=== PATIENT | female | born 1985 | race American Indian/Alaskan Native ===

== ENCOUNTER 2019-03-19 21:52 | Emergency (ER) | payer BC, MEDICAID ==
[2019-03-20 00:03] LABS: Basophils # (Auto) 0.1 K/mm3 (0.0-0.1); Basophils % (Auto) 0.6 % (0.0-1.8); Eosinophils # (Auto) 0.2 K/mm3 (0.0-0.4); Eosinophils % (Auto) 2.3 % (0.0-4.3); Hematocrit 35.8 % (30.3-42.9); Hemoglobin 11.8 gm/dl (10.1-14.3); Lymphocytes # (Auto) 2.1 K/mm3 (1.2-5.4); Lymphocytes % (Auto) 19.4 % (13.4-35.0); Mean Corpuscular HGB Conc 33 % (30-34); Mean Corpuscular Volume 101 fl (79-97); Monocytes # (Auto) 0.7 K/mm3 (0.0-0.8); Monocytes % (Auto) 6.7 % (0.0-7.3); Platelet Count 448 K/mm3 (140-440); Red Blood Count 3.54 M/mm3 (3.65-5.03); Red Cell Distribution Width 12.9 % (13.2-15.2)
[2019-03-20 00:11] LABS: INR 0.97 (0.87-1.13)
[2019-03-20 00:12] LABS: Partial Thromboplastin Time 31.5 Sec. (24.2-36.6)
[2019-03-20 00:15] LABS: BUN/Creatinine Ratio 7; Blood Urea Nitrogen 5 mg/dL (7-17); Calcium 9.4 mg/dL (8.4-10.2); Hemolysis Index 8
[2019-03-20] MEDS ORDERED: ATROVENT IH ONE (00:17)
[2019-03-20] MEDS ORDERED: PROVENTIL IH ONE (00:17)
[2019-03-20] MEDS ORDERED: NACL 0.9% 500 ML 500 ML IV ONE (00:17)
--- NOTE | 2019-03-20 00:18 | Emergency Department Report ---
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 Patient presents to the emergency room today with a complaint of "cold-like symptoms." Approximately 1 week ago she developed a runny nose, coughing, green mucus production, shortness of breath and chest tightness. She presented to a primary care doctor, and was prescribed albuterol, acet aminophen, and appropriate antiallergy therapy. She has remained compliant with her aspirin therapy, and Lovenox therapy. She reports that over the past 3 days, she's developed central chest pain, p ressure, worsened with coughing, radiates to the back, shortness of breath, which she describes as difficulty taking a deep breath, worsening cough, right- sided headache, right-sided ear pain. She was prescribed albuterol, but wasn't able to get up because the pharmacy was closed. She denies posterior leg pain, leg swelling, oral contraceptive use, recent surgeries. She denies abdominal pain. Her symptoms are worsening over the past few days, worse with physical exertion, decreased with rest, and radiates as previously described. There is no family history of heart disease that she is aware of. She does not smoke cigarettes. Her significant other does consume via a vaping device She does report some worthless exposure to smoke. -: Gradual, days(s) Location: head, face, chest Radiation: back Severity scale (0 -10): 8 Consistency: constant Improves with: other Worsens with: other Associated Symptoms: chest pain, cough, headaches, shortness of breath. denies: confusion, diaphoresis, fever/chills, loss of appetite, malaise, nausea/vomiting, rash, seizure, syncope, weakness - Related Data Previous Rx's Medication Instructions Recorded Last Taken Type Acetaminophen [Acetaminophen 8 650 mg PO Q6HR PRN #30 tablet.er 03/20/19 Unknown Rx Hour] Albuterol Sulfate [Albuterol 0.63% 0.63 mg IH Q4HR PRN #2 ml 03/20/19 Unknown Rx NEBS] Albuterol Sulfate [Proair 90 mcg IH Q4HR PRN #2 aer.pow.ba 03/20/19 Unknown Rx Respiclick] Cefdinir 600 mg PO QDAY #14 capsule 03/20/19 Unknown Rx Allergies Allergy/AdvReac Type Severity Reaction Status Date / Time Penicillins AdvReac N/V Verified 11/24/14 09:18 ED Review of Systems ROS: Stated complaint: CHEST PAIN/SOB/IBRAHIM/EARACHE Other details as noted in HPI Constitutional: denies: fever Eyes: denies: eye discharge ENT: congestion Respiratory: cough, shortness of breath Cardiovascular: chest pain Gastrointestinal: denies: abdominal pain, nausea, vomiting Genitourinary: denies: dysuria Musculoskeletal: arthralgia Skin: denies: lesions Neurological: headache Psychiatric: anxiety ED Past Medical Hx - Past Medical History Previous Medical History?: Yes Hx Asthma: Yes Additional medical history: TIA, States she is 25 weeks high risk due to her DM, blood clots after knee surgery, high platelet count and she is self admistering Lovenox daily. - Surgical History Past Surgical History?: Yes Additional Surgical History: HERNIA REPAIR. THYROIDECTOMY. Left Knee surgery - Social History Smoking Status: Never Smoker - Medications Home Medications: Home Medications Medication Instructions Recorded Confirmed Last Taken Type Acetaminophen [Acetaminophen 8 650 mg PO Q6HR PRN #30 tablet.er 03/20/19 Unknown Rx Hour] Albuterol Sulfate [Albuterol 0.63% 0.63 mg IH Q4HR PRN #2 ml 03/20/19 Unknown Rx NEBS] Albuterol Sulfate [Proair 90 mcg IH Q4HR PRN #2 aer.pow.ba 03/20/19 Unknown Rx Respiclick] Cefdinir 600 mg PO QDAY #14 capsule 03/20/19 Unknown Rx ED Physical Exam - General Limitations: No Limitations General appearance: alert, in no apparent distress - Head Head exam: Present: atraumatic, normocephalic - Eye Eye exam: Present: normal appearance, EOMI. Absent: nystagmus - ENT ENT exam: Present: normal exam, normal orophraynx, mucous membranes moist, normal external ear exam. Absent: TM's normal bilaterally (right-sided tympanic membrane is erythematous and opacified. There is no mastoid tenderness. There is no helix tenderness.) - Neck Neck exam: Present: normal inspection, full ROM. Absent: tenderness, meningismus - Respiratory Respiratory exam: Present: decreased breath sounds. Absent: respiratory distress - Cardiovascular Cardiovascular Exam: Present: normal rhythm, tachycardia, normal heart sounds. Absent: systolic murmur, diastolic murmur, rubs, gallop - GI/Abdominal GI/Abdominal exam: Present: soft. Absent: distended, tenderness, guarding, rebound, rigid, pulsatile mass - Extremities Exam Extremities exam: Present: normal inspection, full ROM, other (2+ pulses noted i n the bilateral upper, lower extremities. Compartments soft. No long bony tenderness. The pelvis is stable.). Absent: pedal edema, joint swelling, calf tenderness (there is no palpable cord. There is negative Homans sign.) - Back Exam Back exam: Present: normal inspection, full ROM. Absent: tenderness, CVA tenderness (R), paraspinal tenderness, vertebral tenderness - Neurological Exam Neurological exam: Present: alert, oriented X3, other (2+ pulses noted in the bilateral upper, lower extremities. Compartments soft. No long bony tenderness. The pelvis is stable.). Absent: motor sensory deficit - Psychiatric Psychiatric exam: Present: anxious - Skin Skin exam: Present: warm, dry, intact, normal color. Absent: rash ED Course Vital Signs 03/19/19 03/19/19 03/19/19 22:11 22:38 23:39 Temperature 98.4 F 98.0 F Pulse Rate 103 H 122 H Pulse Rate [ Bilateral] Respiratory 18 18 20 Rate Respiratory Rate [Bilateral ] Blood Pressure 135/82 135/82 Blood Pressure [Left] O2 Sat by Pulse 100 100 Oximetry 03/19/19 03/20/19 03/20/19 23:42 01:00 01:10 Temperature 98.0 F Pulse Rate 105 H Pulse Rate [ 96 H 92 H Bilateral] Respiratory 20 Rate Respiratory 21 20 Rate [Bilateral ] Blood Pressure Blood Pressure 129/86 [Left] O2 Sat by Pulse 99 Oximetry - Reevaluation(s) Reevaluation #1: 03/20/19 01:09 Differential diagnosis, including but not limited to: Bronchitis, pneumonia, costochondritis, otitis media, migraine headache, tension headache, cluster headache, acute coronary syndrome, pulmonary embolus Assessment and plan: 33-year-old female who is , pulse likely with natural history of bronchitis. The patient is afebrile with reassuring vital signs. Tachycardia reviewed and appreciated, likely secondary to underlying physiology of . Troponin negative 1, chest pain is present for a few days, patient is not hypoxic, the EKG is not morphologically consistent with ST elevation myocardial infarction. The patient reports compliance with Lovenox therapy, and her d-dimer is negative, I find her to be low posttussive probability, and low risk by clinical gestalt. Patient is amenable to having an x-ray of the chest performed, after risks, benefits were described. Appears to have a right-sided otitis media, and her "allergy" to penicillins, includes diarrhea and rash. She makes no complaints or engorgement of anaphylactic or anaphylactoid symptoms. Explained to patient that these are mos t likely adverse reactions, side effects, but not necessarily allergic in nature. We will obtain noncontrast CT scan of the brain given history of Lovenox use, although clinically doubt intracranial lesion. Patient will be started empirically on albuterol, acetaminophen, and cefdinir. Repeat troponin, repeat EKG pending. heart tones were performed. they are acceptable and within normal limits. It is my pain that the patient most likely has an upper respiratory tract infection, bronchitis with probable superimposed otitis media. The patient is at low risk for major adverse cardiac event, as per the heart score, and she can follow up with an outpatient employment agency manager further evaluation of her chest pain, although I do not have a very high suspicion for obstructive coronary artery disease. Reevaluation #2: 03/20/19 01:44 X-ray chest appears to be negative for acute disease. Poor inspiratory effort is noted. Repeat EKG appears to be unchanged. Shasha be transferred to the overnight physician, Dr. Josefina Pineda to follow-up on repeat troponin, and formal CT scan of the brain interpretation. If no acute pathology identified, and repeat troponin unremarkable, we will discharge the patient with presumed diagnosis of otitis media, bronchitis, and r efer her to labor and delivery, given that she is approximately 25 weeks by history. ED Medical Decision Making - Lab Data Result diagrams: 03/19/19 23:25 03/19/19 23:25 Vital Signs 03/19/19 03/19/19 03/19/19 22:11 22:38 23:39 Temperature 98.4 F 98.0 F Pulse Rate 103 H 122 H Pulse Rate [ Bilateral] Respiratory 18 18 20 Rate Respiratory Rate [Bilateral ] Blood Pressure 135/82 135/82 Blood Pressure [Left] O2 Sat by Pulse 100 100 Oximetry 03/19/19 03/20/19 23:42 01:00 Temperature 98.0 F Pulse Rate 105 H Pulse Rate [ 96 H Bilateral] Respiratory 20 Rate Respiratory 21 Rate [Bilateral ] Blood Pressure Blood Pressure 129/86 [Left] O2 Sat by Pulse 99 Oximetry Lab Results 03/19/19 03/19/19 03/19/19 Range/Units 23:25 23:25 23:25 WBC 10.9 (4.5-11.0) K/mm3 RBC 3.54 L (3.65-5.03) M/mm3 Hgb 11.8 (10.1-14.3) gm/dl Hct 35.8 (30.3-42.9) % MCV 101 H (79-97) fl MCH 33 H (28-32) pg MCHC 33 (30-34) % RDW 12.9 L (13.2-15.2) % Plt Count 448 H (140-440) K/mm3 Lymph % (Auto) 19.4 (13.4-35.0) % [place] % (Auto) 6.7 (0.0-7.3) % Eos % (Auto) 2.3 (0.0-4.3) % Baso % (Auto) 0.6 (0.0-1.8) % Lymph # 2.1 (1.2-5.4) K/mm3 [place] # 0.7 (0.0-0.8) K/mm3 Eos # 0.2 (0.0-0.4) K/mm3 Baso # 0.1 (0.0-0.1) K/mm3 Seg Neutrophils % 71.0 H (40.0-70.0) % Seg Neutrophils # 7.8 H (1.8-7.7) K/mm3 PT 13.5 (12.2-14.9) Sec. INR 0.97 (0.87-1.13) APTT 31.5 (24.2-36.6) Sec. D-Dimer (0-234) ng/mlDDU Sodium 135 L (137-145) mmol/L Potassium 3.7 (3.6-5.0) mmol/L Chloride 102.7 (98-107) mmol/L Carbon Dioxide 18 L (22-30) mmol/L Anion Gap 18 mmol/L BUN 5 L (7-17) mg/dL Creatinine 0.7 (0.7-1.2) mg/dL Estimated GFR > 60 ml/min BUN/Creatinine Ratio 7 % Glucose 102 H (65-100) mg/dL Calcium 9.4 (8.4-10.2) mg/dL Troponin T < 0.010 (0.00-0.029) ng/mL HCG, Quant (0-4) mIU/mL 03/19/19 03/20/19 Range/Units 23:25 Unknown WBC (4.5-11.0) K/mm3 RBC (3.65-5.03) M/mm3 Hgb (10.1-14.3) gm/dl Hct (30.3-42.9) % MCV (79-97) fl MCH (28-32) pg MCHC (30-34) % RDW (13.2-15.2) % Plt Count (140-440) K/mm3 Lymph % (Auto) (13.4-35.0) % [place] % (Auto) (0.0-7.3) % Eos % (Auto) (0.0-4.3) % Baso % (Auto) (0.0-1.8) % Lymph # (1.2-5.4) K/mm3 [place] # (0.0-0.8) K/mm3 Eos # (0.0-0.4) K/mm3 Baso # (0.0-0.1) K/mm3 Seg Neutrophils % (40.0-70.0) % Seg Neutrophils # (1.8-7.7) K/mm3 PT (12.2-14.9) Sec. INR (0.87-1.13) APTT (24.2-36.6) Sec. D-Dimer 228 (0-234) ng/mlDDU Sodium (137-145) mmol/L Potassium (3.6-5.0) mmol/L Chloride (98-107) mmol/L Carbon Dioxide (22-30) mmol/L Anion Gap mmol/L BUN (7-17) mg/dL Creatinine (0.7-1.2) mg/dL Estimated GFR ml/min BUN/Creatinine Ratio % Glucose (65-100) mg/dL Calcium (8.4-10.2) mg/dL Troponin T (0.00-0.029) ng/mL HCG, Quant 5597 H (0-4) mIU/mL Decreased serum CO2 likely secondary to underlying increasing minute ventilation, likely secondary to underlying expected physiology of . - EKG Data -: EKG Interpreted by [place] EKG shows normal: sinus rhythm Rate: tachycardia - EKG Data 03/20/19 01:15 Sinus tachycardia, 110 beats minute, normal axis, QTC prolonged, abnormal EKG, this is not consistent with ST elevation myocardial infarction. There is no prior for comparison. - Radiology Data Radiology results: pending Critical care attestation.: If time is entered above; I have spent that time in minutes in the direct care of this critically ill patient, excluding procedure time. ED Disposition Clinical Impression: Bronchitis, Otitis media Disposition: DC-01 TO HOME OR SELFCARE Is pt being admited?: No Does the pt Need Aspirin: No Condition: Stable
[2019-03-20] MEDS ORDERED: TYLENOL PO STA (00:42)
--- NOTE | 2019-03-20 02:11 | Cat Scan Report ---
PROCEDURE: CT HEAD/BRAIN WO CON TECHNIQUE: Computerized tomography of the head was performed without contrast material. CT DOSE LENGTH PRODUCT: 805.4 mGycm HISTORY: carey on lovenox, suspect right sided otitis media COMPARISONS: None . FINDINGS: Skull and scalp: Normal . Paranasal sinuses: Normal . Ventricles and subarachnoid spaces: Normal . Cerebrum: No evidence of hemorrhage, acute infarction or mass . Cerebellum and brainstem: No evidence of hemorrhage, acute infarction or mass . Vasculature: Normal . Other: None . IMPRESSION: No evidence of hemorrhage, acute infarction or mass . This document is electronically signed by Kala Jiang MD., March 20 2019 02:09:28 AM ET
--- NOTE | 2019-03-20 02:29 | XRay Report ---
PROCEDURE: XR CHEST ROUTINE 2V TECHNIQUE: PA and lateral chest radiographs were obtained. HISTORY: cp dyspbnea COMPARISONS: None. FINDINGS: Heart: Normal. Mediastinum/Vessels: Normal. Lungs/Pleural space: Normal. Bony thorax: No acute osseous abnormality. IMPRESSION: Normal examination. This document is electronically signed by Bacilio Walker MD., March 20 2019 02:27:34 AM ET
[2019-03-20] MEDS ORDERED: LACTATED RINGERS 1,000 ML ONE (04:26)
[2019-03-20 05:11] VITALS: BP 127/63
[2019-03-20] MEDS ORDERED: SUBLIMAZE ONE (05:13)
[2019-03-20] MEDS ORDERED: LACTATED RINGERS 500 ML IV ONE (05:42)
== END 2019-03-20 06:25 | disposition home or self-care (01) ==
LOC: ED 21:52 → TRG 21:52
DX: O99.512 Diseases of the respiratory system complicating pregnancy, second trimester (principal); J45.901 Unspecified asthma with (acute) exacerbation; O13.2 Gestational [pregnancy-induced] hypertension without significant proteinuria, second trimester; O24.419 Gestational diabetes mellitus in pregnancy, unspecified control; O22.32 Deep phlebothrombosis in pregnancy, second trimester; I82.402 Acute embolism and thrombosis of unspecified deep veins of left lower extremity; O26.892 Other specified pregnancy related conditions, second trimester; R51 Headache; R06.02 Shortness of breath; J06.9 Acute upper respiratory infection, unspecified; E66.9 Obesity, unspecified; H66.90 Otitis media, unspecified, unspecified ear; Z79.01 Long term (current) use of anticoagulants; Z68.36 Body mass index [BMI] 36.0-36.9, adult; Z3A.21 21 weeks gestation of pregnancy; Z86.73 Personal history of transient ischemic attack (TIA), and cerebral infarction without residual deficits
CPT/HCPCS: 36415; 70450; 71046; 80048; 84484; 84702; 85025; 85379; 85610; 85730; 93005; 93010; 94640; J7040; 99285; J3010; J7120

== ENCOUNTER 2019-04-28 16:24 | Outpatient (CLI) | payer MEDICAID ==
[2019-04-28] MEDS ORDERED: LACTATED RINGERS 500 ML IV ONE (16:43)
[2019-04-28 17:40] LABS: Hematocrit 35.1 % (30.3-42.9); Hemoglobin 12.3 gm/dl (10.1-14.3); Mean Corpuscular HGB Conc 35 % (30-34); Mean Corpuscular Volume 98 fl (79-97); Platelet Count 375 K/mm3 (140-440); Red Blood Count 3.58 M/mm3 (3.65-5.03); Red Cell Distribution Width 12.8 % (13.2-15.2)
[2019-04-28 17:47] LABS: Bacteria,Urine 2+ /HPF (Negative); Bilirubin,Urine NEG (Negative); Blood,Urine SM (Negative); Color,Urine Amber (Yellow); Hyaline Casts,Urine 1 /LPF; Mucus,Urine 2+ /HPF; Urobilinogen,Urine < 2.0 mg/dL (<2.0)
[2019-04-28 18:13] LABS: Alanine Aminotransferase 13 units/L (7-56); Uric Acid 5.4 mg/dL (3.5-7.6)
[2019-04-28] MEDS ORDERED: TYLENOL PO ONE (19:28)
[2019-04-28] MEDS ORDERED: LACTATED RINGERS 1,000 ML ONE (19:39)
[2019-04-28 21:42] LABS: BUN/Creatinine Ratio 8; Blood Urea Nitrogen 5 mg/dL (7-17); Calcium 9.3 mg/dL (8.4-10.2); Hemolysis Index 13
[2019-04-28 22:16] VITALS: BP 128/76
== END 2019-04-28 22:33 | disposition home or self-care (01) ==
LOC: TRG 16:24
PROVIDERS: ATTEND Obstetrics & Gynecology
DX: O21.2 Late vomiting of pregnancy (principal); O26.893 Other specified pregnancy related conditions, third trimester; R51 Headache; O47.03 False labor before 37 completed weeks of gestation, third trimester; O16.3 Unspecified maternal hypertension, third trimester; O24.313 Unspecified pre-existing diabetes mellitus in pregnancy, third trimester; E11.9 Type 2 diabetes mellitus without complications; O99.513 Diseases of the respiratory system complicating pregnancy, third trimester; J45.909 Unspecified asthma, uncomplicated; O22.33 Deep phlebothrombosis in pregnancy, third trimester; I82.402 Acute embolism and thrombosis of unspecified deep veins of left lower extremity; Z3A.31 31 weeks gestation of pregnancy; Z79.01 Long term (current) use of anticoagulants
CPT/HCPCS: 36415; 59025; 80048; 81001; 82565; 82962; 83615; 84450; 84460; 84550; 85027; 96360; J7120

== ENCOUNTER 2019-05-24 14:05 | Inpatient (IN) | payer MEDICAID ==
[2019-05-24] MEDS ORDERED: TYLENOL PO PRN (14:50)
[2019-05-24] MEDS ORDERED: COLACE PO PRN (14:50)
[2019-05-24] MEDS ORDERED: MAGNESIUM SULFATE 4GM/100ML 4 GM/100 ML BAG IV ONE (14:53)
[2019-05-24] MEDS: LACTATED RINGERS 1,000 ML IV SCH (15:54)
[2019-05-24] MEDS: CELESTONE SOLUSPAN IM SCH (16:08)
[2019-05-24 16:20] LABS: Basophils # (Auto) 0.1 K/mm3 (0.0-0.1); Basophils % (Auto) 0.8 % (0.0-1.8); Eosinophils # (Auto) 0.2 K/mm3 (0.0-0.4); Eosinophils % (Auto) 2.6 % (0.0-4.3); Hematocrit 33.4 % (30.3-42.9); Hemoglobin 11.7 gm/dl (10.1-14.3); Lymphocytes # (Auto) 2.1 K/mm3 (1.2-5.4); Lymphocytes % (Auto) 24.9 % (13.4-35.0); Mean Corpuscular HGB Conc 35 % (30-34); Mean Corpuscular Volume 98 fl (79-97); Monocytes # (Auto) 0.7 K/mm3 (0.0-0.8); Monocytes % (Auto) 8.1 % (0.0-7.3); Platelet Count 357 K/mm3 (140-440); Red Blood Count 3.42 M/mm3 (3.65-5.03); Red Cell Distribution Width 12.9 % (13.2-15.2)
[2019-05-24 16:29] LABS: Alanine Aminotransferase 14 units/L (7-56); Uric Acid 4.7 mg/dL (3.5-7.6)
[2019-05-24] MEDS: MAGNESIUM SULFATE 40GM/1000ML 40 GM/1,000 ML BAG IV SCH (16:31)
--- NOTE | 2019-05-24 16:39 | History and Physical Report ---
<ANDIE PADGETT Keesha - Last Filed: 05/24/19 17:13> History of Present Illness Date of examination: 05/24/19 (Admitt per [facility] recommendations) Date of admission: 05/24/19 14:05 Chief complaint: IBRAHIM in [facility]'s office History of present illness: EDC Calculations LMP: 06/28/2019 Past History : 3 Term Births: 1 Living Children: 1 Para: 1 Aborta: 1 Spont. Ab: 1 # 1 Delivery date: 2005 Weeks Gestation: 40 labor: no Delivery type: Delivery location: [place] Sex: Male weight: 6#6 Comments: htn # 2 Delivery date: 2017 Weeks Gestation: 3-4 Delivery type: SAB Past Medical History: Abnormal Pap Smear- 2005, normal since Anemia- pernicious Diabetes- dx this year, on 1000mg metformin, BID (managed by [facility]) Hypertension- dx 2005, 200mg labetalol BID Hypothyroidism- thyroidectomy, 175mg levothyroxine daily (managed by [facility]) TIA- 2 months after delivery in 2005 Past Surgical History: thyroidectomy knee surgery-2014 Past Medical History Diabetes: yes Surgery (Non-burr bench hand): thyroidectomy knee surgery-2014 Abnormal PAP: positive, 2005 Family Hx: mom- DM, heart disease sisters- anemia 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 of genital herpes: no Partner hx. of genital herpes: no Rash, Viral, or Febrile illness since last LMP? no Varicella/Chicken Pox Status: Previous Disease Genetic History Congenital Heart Defect: Mom: no Dad: no Manpreet Disease: Mom: no Dad: no Thalassemia Mom: no Dad: no Neural Tube Defect Mom: no Dad: no Down's Syndrome Mom: no Dad: no Pedro-Sachs Mom: no Dad: no Sickle Cell Disease/Trait Mom: no Dad: no Hemophilia Mom: no Dad: no Muscular Dystrophy Mom: no Dad: no Cystic Fibrosis Mom: no Dad: no Peach Chorea Mom: no Dad: no Mental Retardation Mom: no Dad: no Fragile X Mom: no Dad: no Other Genetic/Chromosomal Disorder Mom: no Dad: no Child w/other defect Mom: no Dad: no Enviromental Exposures Xray Exposure: no Medication, drug, or alcohol use since LMP: no Chemical/Other Exposure: no Exposure to Cat Liter: no Hx of Parvovirus (Fifth Disease): no Current Allergies (reviewed today): * PENICILLAN (Critical) Past History Past Medical History: other (see HPI) Past Surgical History: other (see HPI) [employer] History: other (see HPI) Family/Genetic History: other (see HPI) - Obstetrical History Expected Date of Delivery: 06/28/19 Actual Gestation: 35 Week(s) 0 Day(s) : 3 Para: 1 Hx # Term Pregnancies: 1 Number of Pregnancies: 0 Spontaneous Abortions: 1 Induced : 0 Number of Living Children: 1 Medications and Allergies Allergies Allergy/AdvReac Type Severity Reaction Status Date / Time Penicillins AdvReac N/V Verified 11/24/14 09:18 Home Medications Medication Instructions Recorded Confirmed Last Taken Type Acetaminophen [Acetaminophen 8 650 mg PO Q6HR PRN #30 tablet.er 03/20/19 Unknown Rx Hour] Albuterol Sulfate [Albuterol 0.63% 0.63 mg IH Q4HR PRN #2 ml 03/20/19 Unknown Rx NEBS] Albuterol Sulfate [Proair 90 mcg IH Q4HR PRN #2 aer.[email or web address] 03/20/19 Unknown Rx Respiclick] Cefdinir 600 mg PO QDAY #14 capsule 03/20/19 Unknown Rx Active Meds: Active Medications Acetaminophen (Tylenol) 650 mg PO Q4H PRN PRN Reason: Pain MILD(1-3)/Fever >100.5/IBRAHIM Last Admin: 05/24/19 15:52 Dose: 650 mg Documented by: Betamethasone Acet/Betameth SodPhos (Celestone Soluspan) 12 mg IM Q24H IRIS Stop: 05/25/19 15:01 Last Admin: 05/24/19 16:08 Dose: 12 mg Documented by: Docusate Sodium (Colace) 100 mg PO Q12H PRN PRN Reason: Constipation Lactated Ringer's (Lactated Ringers) 1,000 mls @ 125 mls/hr IV DIRECT IRIS Last Admin: 05/24/19 15:54 Dose: 125 mls/hr Documented by: Magnesium Sulfate (Magnesium Sulfate 40gm/1000ml) 40 gm in 1,000 mls @ 50 mls/hr IV DIRECT IRIS Last Admin: 05/24/19 16:31 Dose: 2 gm/hr, 50 mls/hr Documented by: Labetalol HCl (Normodyne) 200 mg PO BID [facility] Multivitamins/Iron/Calcium ( Vitamin) 1 each PO QDAY [facility] Zolpidem Tartrate (Ambien) 10 mg PO ONCE PRN PRN Reason: Sleep Review of Systems All systems: negative - Vital Signs Vital signs: Vital Signs Pulse BP 92 H 139/90 05/24/19 14:43 05/24/19 14:43 Temp Pulse Resp BP Pulse Ox 90 20 132/73 05/24/19 16:28 05/24/19 15:52 05/24/19 16:28 - Physical Exam Breasts: Positive: normal Cardiovascular: Regular rate Lungs: Positive: Clear to auscultation, Normal air movement Abdomen: Positive: normal appearance, soft, normal bowel sounds. Negative: distention Genitourinary (Female): Positive: normal external genitalia, normal perenium Vulva: both: normal Uterus: Positive: normal size, normal contour Extremities: Positive: normal Deep Tendon Reflex Grade: Normal +2 - Obstetrical FHR: category 1 Uterine Contraction Monitor Mode: External Uterine Contraction Pattern: Irregular Uterine Tone Measurement Phase: Resting Uterine Contraction Intensity: Mild Results Result Diagrams: 05/24/19 15:40 05/24/19 15:40 Abnormal lab results 05/24/19 05/24/19 Range/Units 15:40 15:40 RBC 3.42 L (3.65-5.03) M/mm3 MCV 98 H (79-97) fl MCH 34 H (28-32) pg MCHC 35 H (30-34) % RDW 12.9 L (13.2-15.2) % [place] % (Auto) 8.1 H (0.0-7.3) % Creatinine 0.6 L (0.7-1.2) mg/dL All other labs normal. Assessment and Plan 33y/o G @ 35+0 weeks, admitted per Dr. Brown's recommendations. recommendations as follows: 1. hospitalization secondary to symptomatic elevated b/p 2. IV therapy 3. Mag sulfate IV therapy x 24h for neuroprotection 4. steroids for lung maturity 5. continuos EFM 6. Accucheck fasting and 2h after meals 7. Bleeding precautions 8. Discontinue lovenox, resume after delivery for 6 weeks 9. With continued IBRAHIM, pt should be delivered - Patient Problems (1) Diabetes in Current Visit: Yes Status: Acute Qualifiers: Diabetes in type: pre-existing, unspecified type Trimester: third trimester Qualified Code(s): O24.313 - Unspecified pre-existing diabetes nancy itus in , third trimester Plan to address problem: Monitor blood sugars fasting and 2hPP Pt currently on Metformin 1000mg and NPH 15units qHS - managed [facility] Endocrinology expect elevations in blood sugars d/t steroids (2) Hypothyroid Current Visit: Yes Status: Acute Plan to address problem: Continue on Levothyroxine 175mcg QD (3) 35 weeks gestation of Current Visit: Yes Status: Acute (4) HTN (hypertension) Current Visit: Yes Status: Acute Qualifiers: Hypertension type: essential hypertension Qualified Code(s): I10 - Essential (primary) hypertension Plan to address problem: r/o superimposed pre-e Pre-e labs ordered on admission Monitor b/p Continue on labetalol 200mg PO BID (5) Headache Onset Date: ~05/24/19 Current Visit: Yes Status: Acute Qualifiers: Headache type: tension-type Headache chronicity pattern: acute headache (6) IUGR (intrauterine growth restriction) Current Visit: Yes Status: Acute Plan to address problem: IUGR 6th% Continuos efm monitor for any s/s distress Consult [facility] <JEFFERY SU D - Last Filed: 05/24/19 17:48> History of Present Illness Date of admission: 05/24/19 14:05 Medications and Allergies Active Meds: Active Medications Betamethasone Acet/Betameth SodPhos (Celestone Soluspan) 12 mg IM Q24H IRIS Stop: 05/25/19 15:01 Last Admin: 05/24/19 16:08 Dose: 12 mg Documented by: Docusate Sodium (Colace) 100 mg PO Q12H PRN PRN Reason: Constipation Lactated Ringer's (Lactated Ringers) 1,000 mls @ 125 mls/hr IV DIRECT IRIS Last Admin: 05/24/19 15:54 Dose: 125 mls/hr Documented by: Magnesium Sulfate (Magnesium Sulfate 40gm/1000ml) 40 gm in 1,000 mls @ 50 mls/hr IV DIRECT IRIS Last Admin: 05/24/19 16:31 Dose: 2 gm/hr, 50 mls/hr Documented by: Insulin Human NPH (Humulin N) 15 unit SUB-Q QPMDIAB [facility] Labetalol HCl (Normodyne) 200 mg PO BID [facility] Levothyroxine Sodium (Synthroid) 150 mcg PO DAILY@0600 [facility] Levothyroxine Sodium (Synthroid) 25 mcg PO DAILY@0600 [facility] Metformin HCl (Glucophage) 1,000 mg PO BIDDIAB [facility] Multivitamins/Iron/Calcium ( Vitamin) 1 each PO QDAY [facility] Zolpidem Tartrate (Ambien) 10 mg PO ONCE PRN PRN Reason: Sleep - Vital Signs Vital signs: Vital Signs Pulse BP 92 H 139/90 05/24/19 14:43 05/24/19 14:43 Temp Pulse Resp BP Pulse Ox 101 H 20 131/69 05/24/19 17:13 05/24/19 15:52 05/24/19 17:13 Results Result Diagrams: 05/24/19 15:40 05/24/19 15:40 Abnormal lab results 05/24/19 05/24/19 Range/Units 15:40 15:40 RBC 3.42 L (3.65-5.03) M/mm3 MCV 98 H (79-97) fl MCH 34 H (28-32) pg MCHC 35 H (30-34) % RDW 12.9 L (13.2-15.2) % [place] % (Auto) 8.1 H (0.0-7.3) % Creatinine 0.6 L (0.7-1.2) mg/dL All other labs normal. Assessment and Plan - Patient Problems (1) 35 weeks gestation of Current Visit: Yes Status: Acute (2) Pre-eclampsia Current Visit: Yes Status: Acute Plan to address problem: s/w Dr. Brown([facility]), diagnosis is mild preeclampsia, recommends delivery at 37weeks if asymptomatic otherwise deliver now with symptoms. IBRAHIM improving. (3) HTN (hypertension) Current Visit: Yes Status: Acute Qualifiers: Hypertension type: essential hypertension Qualified Code(s): I10 - Essential (primary) hypertension Plan to address problem: continue labetalol 200mg bid (4) Headache Onset Date: ~07/02/19 Current Visit: Yes Status: Acute Qualifiers: Headache type: tension-type Headache chronicity pattern: acute headache (5) IUGR (intrauterine growth restriction) Current Visit: Yes Status: Acute Plan to address problem: Normal dopplers today at [facility] (6) Diabetes in Current Visit: Yes Status: Acute Qualifiers: Diabetes in type: pre-existing, unspecified type Trimester: third trimester Qualified Code(s): O24.313 - Unspecified pre-existing diabetes melli tus in , third trimester Plan to address problem: Continue Metformin 1000mg bid and NPH 15uqhs Fasting and 2hr PP BS. Anticipate increase BS d/t steroids, will consider SSI if needed (7) Hypothyroid Current Visit: Yes Status: Acute Plan to address problem: Continue Synthroid 175mcg qd (8) Proteinuria Current Visit: Yes Status: Acute Plan to address problem: TP 341mg/24hrs 01/2019 @ 20wga (9) Protein S deficiency Current Visit: Yes Status: Acute Plan to address problem: Informed Dr. Brown of Protein S deficiency, states can be repeated PP. Discontinue Lovenox and hold Heparin in anticipation of delivery. (10) DVT (deep venous thrombosis) Current Visit: Yes Status: Acute (11) TIA (transient ischemic attack) Current Visit: Yes Status: Acute
[2019-05-24 17:31] LABS: Bacteria,Urine 3+ /HPF (Negative); Bilirubin,Urine NEG (Negative); Blood,Urine NEG (Negative); Calcium Oxalate Crystals,Urine 1+; Color,Urine Amber (Yellow); Mucus,Urine 3+ /HPF
--- NOTE | 2019-05-24 17:57 | Progress Note ---
Assessment and Plan SVE done, IBRAHIM improving - Patient Problems (1) Diabetes in Current Visit: Yes Status: Acute Qualifiers: Diabetes in type: pre-existing, unspecified type Trimester: third trimester Qualified Code(s): O24.313 - Unspecified pre-existing diabetes mellitus in , third trimester (2) Hypothyroid Current Visit: Yes Status: Acute (3) 35 weeks gestation of Current Visit: Yes Status: Acute (4) HTN (hypertension) Current Visit: Yes Status: Acute Qualifiers: Hypertension type: essential hypertension Qualified Code(s): I10 - Essential (primary) hypertension (5) Headache Onset Date: ~05/24/19 Current Visit: Yes Status: Acute Qualifiers: Headache type: tension-type Headache chronicity pattern: acute headache (6) IUGR (intrauterine growth restriction) Current Visit: Yes Status: Acute (7) DVT (deep venous thrombosis) Current Visit: Yes Status: Acute (8) Pre-eclampsia Current Visit: Yes Status: Acute (9) TIA (transient ischemic attack) Current Visit: Yes Status: Acute Subjective - Subjective Date of service: 05/24/19 Principal diagnosis: IUP @ 35+0; DM, mild pre-e, IUGR, hypothyroid Interval history: EDC Calculations LMP: 06/28/2019 Past History : 3 Term Births: 1 Living Children: 1 Para: 1 Aborta: 1 Spont. Ab: 1 # 1 Delivery date: 2005 Weeks Gestation: 40 labor: no Delivery type: Delivery location: [place] Infant Sex: Male weight: 6#6 Comments: htn # 2 Delivery date: 2018 Weeks Gestation: 3-4 Delivery type: SAB Past Medical History: Abnormal Pap Smear- 2005, normal since Anemia- pernicious Diabetes- dx this year, on 1000mg metformin, BID (managed by [facility]) Hypertension- dx 2005, 200mg labetalol BID Hypothyroidism- thyroidectomy, 175mg levothyroxine daily (managed by [facility]) TIA- 2 months after delivery in 2005 Past Surgical History: thyroidectomy knee surgery-2014 Past Medical History Diabetes: yes Surgery (Non-barrel turner): thyroidectomy knee surgery-2014 Abnormal PAP: positive, 2005 Family Hx: mom- DM, heart disease sisters- anemia 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 of genital herpes: no Partner hx. of genital herpes: no Rash, Viral, or Febrile illness since last LMP? no Varicella/Chicken Pox Status: Previous Disease Genetic History Congenital Heart Defect: Mom: no Dad: no Manpreet Disease: Mom: no Dad: no Thalassemia Mom: no Dad: no Neural Tube Defect Mom: no Dad: no Down's Syndrome Mom: no Dad: no Pedro-Sachs Mom: no Dad: no Sickle Cell Disease/Trait Mom: no Dad: no Hemophilia Mom: no Dad: no Muscular Dystrophy Mom: no Dad: no Cystic Fibrosis Mom: no Dad: no [place] Chorea Mom: no Dad: no Mental Retardation Mom: no Dad: no Fragile X Mom: no Dad: no Other Genetic/Chromosomal Disorder Mom: no Dad: no Child w/other defect Mom: no Dad: no Enviromental Exposures Xray Exposure: no Medication, drug, or alcohol use since LMP: no Chemical/Other Exposure: no Exposure to Cat Liter: no Hx of Parvovirus (Fifth Disease): no Current Allergies (reviewed today): * PENICILLAN (Critical) Patient reports: other (IBRAHIM much improved), no new complaints Objective - Vital Signs Vital Signs: Vital Signs - 12hr 05/24/19 05/24/19 05/24/19 14:43 14:58 15:13 Pulse Rate 92 H 93 H 84 Respiratory Rate Blood Pressure 139/90 140/91 137/86 05/24/19 05/24/19 05/24/19 15:28 15:52 16:17 Pulse Rate 85 99 H Respiratory 20 Rate Blood Pressure 134/84 126/72 05/24/19 05/24/19 05/24/19 16:28 16:43 16:45 Pulse Rate 90 90 92 H Respiratory Rate Blood Pressure 132/73 140/74 131/61 05/24/19 05/24/19 05/24/19 16:59 17:13 17:28 Pulse Rate 91 H 101 H 94 H Respiratory Rate Blood Pressure 129/60 131/69 131/63 05/24/19 17:44 Pulse Rate 94 H Respiratory Rate Blood Pressure 132/81 - Exam Uterine Contraction Monitor Mode: External Cervical Dilatation: 0 Cervical Effacement Percentage: 50 station: -3 - Labs Labs: Abnormal Labs 05/24/19 05/24/19 15:40 15:40 RBC 3.42 L MCV 98 H MCH 34 H MCHC 35 H RDW 12.9 L [place] % (Auto) 8.1 H Creatinine 0.6 L Laboratory Results - last 24 hr 05/24/19 05/24/19 05/24/19 15:40 15:40 15:40 WBC 8.4 RBC 3.42 L Hgb 11.7 Hct 33.4 MCV 98 H MCH 34 H MCHC 35 H RDW 12.9 L Plt Count 357 Lymph % (Auto) 24.9 [place] % (Auto) 8.1 H Eos % (Auto) 2.6 Baso % (Auto) 0.8 Lymph # 2.1 [place] # 0.7 Eos # 0.2 Baso # 0.1 Seg Neutrophils % 63.6 Seg Neutrophils # 5.4 Creatinine 0.6 L Estimated GFR > 60 POC Glucose Uric Acid 4.7 AST 15 ALT 14 Lactate Dehydrogenase 146 Urine Color Urine Turbidity Urine pH Ur Specific [place] Urine Protein Urine Glucose (UA) Urine Ketones Urine Blood Urine Nitrite Urine Bilirubin Urine Urobilinogen Ur Leukocyte Esterase Urine WBC (Auto) Urine RBC (Auto) U Epithel Cells (Auto) Urine Bacteria (Auto) Calcium Oxalate Crystal Urine Mucus Blood Type O POSITIVE Antibody Screen Negative 05/24/19 05/24/19 16:15 17:11 WBC RBC Hgb Hct MCV MCH MCHC RDW Plt Count Lymph % (Auto) [place] % (Auto) Eos % (Auto) Baso % (Auto) Lymph # [place] # Eos # Baso # Seg Neutrophils % Seg Neutrophils # Creatinine Estimated GFR POC Glucose 83 Uric Acid AST ALT Lactate Dehydrogenase Urine Color [place] Urine Turbidity Cloudy Urine pH 5.[address] 1.023 Urine Protein 100 mg/dl Urine Glucose (UA) Neg Urine Ketones Neg Urine Blood Neg Urine Nitrite Neg Urine Bilirubin Neg Urine Urobilinogen 2.0 Ur Leukocyte Esterase Tr Urine WBC (Auto) 5.0 Urine RBC (Auto) 1.0 U Epithel Cells (Auto) 3.0 Urine Bacteria (Auto) 3+ Calcium Oxalate Crystal 1+ Urine Mucus 3+ Blood Type Antibody Screen
[2019-05-24] MEDS: GLUCOPHAGE PO SCH (18:38)
[2019-05-24] MEDS ORDERED: AMBIEN PO PRN (21:00)
[2019-05-24] MEDS: NORMODYNE PO SCH (21:30)
--- NOTE | 2019-05-24 21:55 | Event Note ---
Date: 05/24/19 CTSP for ?ROM, SSE negative pool, negative fern. Patient informed. Plan of care again reviewed, questions were encouraged and answered she voiced understanding and agrees with plan of care
[2019-05-25] MEDS: LACTATED RINGERS 1,000 ML IV SCH ×2 (02:26→14:12)
[2019-05-25] MEDS ORDERED: SYNTHROID 150 MCG, SYNTHROID 25 MCG PO SCH (06:00)
[2019-05-25] MEDS: SYNTHROID PO SCH ×2 (06:10)
--- NOTE | 2019-05-25 07:01 | Progress Note ---
Assessment and Plan Pt in good spirits this AM. Reviewed POC and answered all questions. Pt's only request is for Tylenol for her IBRAHIM. Ordered. Will consult with Second dose BMZ due @ 1700. MGSO4 @ 2gm/hr continues for neuro protection. Mag level this AM 5.1 (1) Diabetes in Current Visit: Yes Status: Acute Qualifiers: Diabetes in type: pre-existing, unspecified type Trimester: third trimester Qualified Code(s): O24.313 - Unspecified pre-existing diabetes mellitus in , third trimester Plan to address problem: BS Fasting and 2hr PP continue Metformin and insulin regime (2) Hypothyroid Current Visit: Yes Status: Acute Plan to address problem: Levothyroxine 175mcg po QD (3) 35 weeks gestation of Current Visit: Yes Status: Acute Second dose BMZ due @ 1700 (4) HTN (hypertension) Current Visit: Yes Status: Acute Qualifiers: Hypertension type: essential hypertension Qualified Code(s): I10 - Essential (primary) hypertension Plan to address problem: [place] [id number] Close monitoring BP Labetalol 200mg PO BID (5) Headache Onset Date: ~05/24/19 Current Visit: Yes Status: Acute Qualifiers: Headache type: tension-type Headache chronicity pattern: acute headache Tylenol po 500mg Q6hr (6) IUGR (intrauterine growth restriction) Current Visit: Yes Status: Acute Plan to address problem: Continuous monitoring Pt reports good movement Subjective - Subjective Date of service: 05/25/19 (resting; asking for Tylenol) Principal diagnosis: IUP @ 35+1; DM, mild pre-e, IUGR, hypothyroid Patient reports: movement normal, other (IBRAHIM is now a dull pain but has not resolved), no new complaints Objective - Vital Signs Vital Signs: Vital Signs - 12hr 05/24/19 05/24/19 05/24/19 19:14 19:28 19:43 Temperature Pulse Rate 111 H 112 H 105 H Respiratory Rate Blood Pressure 138/71 126/79 139/84 Blood Pressure [Left] O2 Sat by Pulse Oximetry 05/24/19 05/24/19 05/24/19 19:58 20:13 20:29 Temperature Pulse Rate 105 H 111 H 109 H Respiratory Rate Blood Pressure 138/85 141/79 128/69 Blood Pressure [Left] O2 Sat by Pulse Oximetry 05/24/19 05/24/19 05/24/19 20:34 20:35 21:30 Temperature 97.1 F L Pulse Rate 110 H 110 H 110 H Respiratory 16 Rate Blood Pressure 141/80 141/80 Blood Pressure 141/80 [Left] O2 Sat by Pulse Oximetry 05/24/19 05/24/19 05/24/19 21:35 21:52 21:57 Temperature Pulse Rate 104 H 104 H 109 H Respiratory Rate Blood Pressure 138/81 Blood Pressure [Left] O2 Sat by Pulse 97 98 Oximetry 05/24/19 05/24/19 05/24/19 22:02 22:07 22:12 Temperature Pulse Rate 105 H 108 H 107 H Respiratory Rate Blood Pressure Blood Pressure [Left] O2 Sat by Pulse 98 99 98 Oximetry 05/24/19 05/24/19 05/24/19 22:17 22:22 22:27 Temperature Pulse Rate 103 H 105 H 102 H Respiratory Rate Blood Pressure Blood Pressure [Left] O2 Sat by Pulse 99 97 98 Oximetry 05/24/19 05/24/19 05/24/19 22:32 22:36 22:37 Temperature Pulse Rate 100 H 99 H 99 H Respiratory Rate Blood Pressure 109/55 Blood Pressure [Left] O2 Sat by Pulse 99 98 Oximetry 05/24/19 05/24/19 05/24/19 22:42 22:47 22:52 Temperature Pulse Rate 102 H 102 H 103 H Respiratory Rate Blood Pressure Blood Pressure [Left] O2 Sat by Pulse 97 97 99 Oximetry 05/24/19 05/24/19 05/24/19 22:57 23:02 23:07 Temperature Pulse Rate 100 H 98 H 99 H Respiratory Rate Blood Pressure Blood Pressure [Left] O2 Sat by Pulse 97 97 96 Oximetry 05/24/19 05/24/19 05/24/19 23:12 23:17 23:20 Temperature 96.4 F L Pulse Rate 98 H 98 H 99 H Respiratory 18 Rate Blood Pressure Blood Pressure 109/61 [Left] O2 Sat by Pulse 96 98 98 Oximetry 05/24/19 05/24/19 05/24/19 23:21 23:22 23:27 Temperature Pulse Rate 98 H 103 H 102 H Respiratory Rate Blood Pressure 109/61 Blood Pressure [Left] O2 Sat by Pulse 98 98 Oximetry 05/24/19 05/24/19 05/24/19 23:32 23:35 23:37 Temperature Pulse Rate 101 H 99 H 103 H Respiratory Rate Blood Pressure 107/57 Blood Pressure [Left] O2 Sat by Pulse 98 98 Oximetry 05/24/19 05/24/19 05/24/19 23:42 23:47 23:52 Temperature Pulse Rate 103 H 104 H 105 H Respiratory Rate Blood Pressure Blood Pressure [Left] O2 Sat by Pulse 98 98 98 Oximetry 05/24/19 05/25/19 05/25/19 23:57 00:02 00:07 Temperature Pulse Rate 106 H 101 H 102 H Respiratory Rate Blood Pressure Blood Pressure [Left] O2 Sat by Pulse 98 98 98 Oximetry 05/25/19 05/25/19 05/25/19 00:12 00:17 00:22 Temperature Pulse Rate 106 H 103 H 104 H Respiratory Rate Blood Pressure Blood Pressure [Left] O2 Sat by Pulse 98 98 99 Oximetry 05/25/19 05/25/19 05/25/19 00:27 00:32 00:35 Temperature Pulse Rate 105 H 102 H 101 H Respiratory Rate Blood Pressure 125/78 Blood Pressure [Left] O2 Sat by Pulse 99 98 Oximetry 05/25/19 05/25/19 05/25/19 00:37 00:42 00:47 Temperature Pulse Rate 101 H 104 H 104 H Respiratory Rate Blood Pressure Blood Pressure [Left] O2 Sat by Pulse 97 97 98 Oximetry 05/25/19 05/25/19 05/25/19 00:52 00:57 01:02 Temperature Pulse Rate 103 H 103 H 106 H Respiratory Rate Blood Pressure Blood Pressure [Left] O2 Sat by Pulse 98 97 98 Oximetry 05/25/19 05/25/19 05/25/19 01:07 01:13 01:17 Temperature Pulse Rate 104 H 104 H 108 H Respiratory Rate Blood Pressure Blood Pressure [Left] O2 Sat by Pulse 98 98 98 Oximetry 05/25/19 05/25/19 05/25/19 01:22 01:27 01:32 Temperature Pulse Rate 105 H 105 H 103 H Respiratory Rate Blood Pressure Blood Pressure [Left] O2 Sat by Pulse 97 97 97 Oximetry 05/25/19 05/25/19 05/25/19 01:35 01:37 01:42 Temperature Pulse Rate 103 H 104 H 105 H Respiratory Rate Blood Pressure 120/68 Blood Pressure [Left] O2 Sat by Pulse 96 99 Oximetry 05/25/19 05/25/19 05/25/19 01:48 01:53 01:57 Temperature Pulse Rate 102 H 106 H 104 H Respiratory Rate Blood Pressure Blood Pressure [Left] O2 Sat by Pulse 97 99 99 Oximetry 05/25/19 05/25/19 05/25/19 02:02 02:07 02:12 Temperature Pulse Rate 102 H 105 H 103 H Respiratory Rate Blood Pressure Blood Pressure [Left] O2 Sat by Pulse 99 98 97 Oximetry 05/25/19 05/25/19 05/25/19 02:17 02:23 02:27 Temperature Pulse Rate 105 H 106 H 108 H Respiratory Rate Blood Pressure Blood Pressure [Left] O2 Sat by Pulse 98 99 98 Oximetry 05/25/19 05/25/19 05/25/19 02:32 02:36 02:37 Temperature Pulse Rate 110 H 108 H 108 H Respiratory Rate Blood Pressure 136/78 Blood Pressure [Left] O2 Sat by Pulse 98 99 Oximetry 05/25/19 05/25/19 05/25/19 02:42 02:47 02:52 Temperature Pulse Rate 108 H 109 H 107 H Respiratory Rate Blood Pressure Blood Pressure [Left] O2 Sat by Pulse 99 97 99 Oximetry 05/25/19 05/25/19 05/25/19 02:57 03:03 03:07 Temperature Pulse Rate 106 H 105 H 107 H Respiratory Rate Blood Pressure Blood Pressure [Left] O2 Sat by Pulse 99 99 98 Oximetry 05/25/19 05/25/19 05/25/19 03:13 03:18 03:22 Temperature Pulse Rate 106 H 106 H 101 H Respiratory Rate Blood Pressure Blood Pressure [Left] O2 Sat by Pulse 98 98 97 Oximetry 05/25/19 05/25/19 05/25/19 03:27 03:32 03:36 Temperature Pulse Rate 102 H 98 H 98 H Respiratory Rate Blood Pressure 118/61 Blood Pressure [Left] O2 Sat by Pulse 97 98 Oximetry 05/25/19 05/25/19 05/25/19 03:38 03:43 03:47 Temperature Pulse Rate 101 H 99 H 102 H Respiratory Rate Blood Pressure Blood Pressure [Left] O2 Sat by Pulse 98 97 97 Oximetry 05/25/19 05/25/19 05/25/19 03:53 03:58 04:03 Temperature Pulse Rate 102 H 105 H 99 H Respiratory Rate Blood Pressure Blood Pressure [Left] O2 Sat by Pulse 97 99 97 Oximetry 05/25/19 05/25/19 05/25/19 04:08 04:13 04:17 Temperature Pulse Rate 99 H 99 H 101 H Respiratory Rate Blood Pressure Blood Pressure [Left] O2 Sat by Pulse 97 97 97 Oximetry 05/25/19 05/25/19 05/25/19 04:22 04:23 04:28 Temperature 96.1 F L Pulse Rate 101 H 99 H 97 H Respiratory 18 Rate Blood Pressure 123/68 Blood Pressure 123/68 [Left] O2 Sat by Pulse 98 98 97 Oximetry 05/25/19 05/25/19 05/25/19 04:33 04:35 04:37 Temperature Pulse Rate 98 H 101 H 96 H Respiratory Rate Blood Pressure 125/76 Blood Pressure [Left] O2 Sat by Pulse 97 98 Oximetry 05/25/19 05/25/19 05/25/19 04:40 04:42 04:46 Temperature Pulse Rate 99 H 99 H 93 H Respiratory Rate Blood Pressure Blood Pressure [Left] O2 Sat by Pulse 93 97 93 Oximetry 05/25/19 05/25/19 05/25/19 04:48 04:52 04:58 Temperature Pulse Rate 96 H 95 H 96 H Respiratory Rate Blood Pressure Blood Pressure [Left] O2 Sat by Pulse 97 97 99 Oximetry 05/25/19 05/25/19 05/25/19 05:03 05:08 05:13 Temperature Pulse Rate 96 H 95 H 92 H Respiratory Rate Blood Pressure Blood Pressure [Left] O2 Sat by Pulse 98 97 98 Oximetry 05/25/19 05/25/19 05/25/19 05:18 05:23 05:28 Temperature Pulse Rate 93 H 95 H 92 H Respiratory Rate Blood Pressure Blood Pressure [Left] O2 Sat by Pulse 98 97 97 Oximetry 05/25/19 05/25/19 05/25/19 05:33 05:36 05:38 Temperature Pulse Rate 94 H 93 H 93 H Respiratory Rate Blood Pressure 109/63 Blood Pressure [Left] O2 Sat by Pulse 97 98 Oximetry 05/25/19 05/25/19 05/25/19 05:42 05:48 05:53 Temperature Pulse Rate 86 89 90 Respiratory Rate Blood Pressure Blood Pressure [Left] O2 Sat by Pulse 97 98 98 Oximetry 05/25/19 05/25/19 05/25/19 05:58 06:03 06:08 Temperature Pulse Rate 95 H 89 92 H Respiratory Rate Blood Pressure Blood Pressure [Left] O2 Sat by Pulse 99 98 97 Oximetry 05/25/19 05/25/19 05/25/19 06:13 06:18 06:23 Temperature Pulse Rate 94 H 94 H 96 H Respiratory Rate Blood Pressure Blood Pressure [Left] O2 Sat by Pulse 99 99 99 Oximetry 05/25/19 05/25/19 05/25/19 06:28 06:33 06:36 Temperature Pulse Rate 92 H 94 H 95 H Respiratory Rate Blood Pressure 114/60 Blood Pressure [Left] O2 Sat by Pulse 98 98 Oximetry 05/25/19 05/25/19 05/25/19 06:38 06:43 06:48 Temperature Pulse Rate 94 H 99 H 103 H Respiratory Rate Blood Pressure Blood Pressure [Left] O2 Sat by Pulse 98 99 99 Oximetry 05/25/19 05/25/19 06:53 06:58 Temperature Pulse Rate 99 H 101 H Respiratory Rate Blood Pressure Blood Pressure [Left] O2 Sat by Pulse 99 99 Oximetry - Exam Breasts: deferred Cardiovascular: Regular rate Lungs: Clear to auscultation, Normal air movement Abdomen: Present: normal appearance, soft, normal bowel sounds. Absent: distention, tenderness Uterus: Present: normal FHR: auscultation normal, category 1 (low baseline 110; no decels) Uterine Contraction Monitor Mode: External Uterine Contraction Pattern: Absent Uterine Tone Measurement Phase: Resting Extremities: normal Deep Tendon Reflex Grade: Normal +2 - Labs Labs: Abnormal Labs 05/24/19 05/24/19 05/24/19 15:40 15:40 21:31 RBC 3.42 L MCV 98 H MCH 34 H MCHC 35 H RDW 12.9 L [place] % (Auto) 8.1 H Creatinine 0.6 L POC Glucose 140 H Magnesium 05/24/19 05/25/19 05/25/19 22:12 04:57 06:21 RBC MCV MCH MCHC RDW [place] % (Auto) Creatinine POC Glucose 120 H Magnesium 4.50 H 5.10 H Laboratory Results - last 24 hr 05/24/19 05/24/19 05/24/19 15:40 15:40 15:40 WBC 8.4 RBC 3.42 L Hgb 11.7 Hct 33.4 MCV 98 H MCH 34 H MCHC 35 H RDW 12.9 L Plt Count 357 Lymph % (Auto) 24.9 [place] % (Auto) 8.1 H Eos % (Auto) 2.6 Baso % (Auto) 0.8 Lymph # 2.1 [place] # 0.7 Eos # 0.2 Baso # 0.1 Seg Neutrophils % 63.6 Seg Neutrophils # 5.4 Creatinine 0.6 L Estimated GFR > 60 POC Glucose Uric Acid 4.7 Magnesium AST 15 ALT 14 Lactate Dehydrogenase 146 Urine Color Urine Turbidity Urine pH Ur Specific [place] Urine Protein Urine Glucose (UA) Urine Ketones Urine Blood Urine Nitrite Urine Bilirubin Urine Urobilinogen Ur Leukocyte Esterase Urine WBC (Auto) Urine RBC (Auto) U Epithel Cells (Auto) Urine Bacteria (Auto) Calcium Oxalate Crystal Urine Mucus Blood Type O POSITIVE Antibody Screen Negative 05/24/19 05/24/19 05/24/19 16:15 17:11 21:31 WBC RBC Hgb Hct MCV MCH MCHC RDW Plt Count Lymph % (Auto) [place] % (Auto) Eos % (Auto) Baso % (Auto) Lymph # [place] # Eos # Baso # Seg Neutrophils % Seg Neutrophils # Creatinine Estimated GFR POC Glucose 83 140 H Uric Acid Magnesium AST ALT Lactate Dehydrogenase Urine Color [place] Urine Turbidity Cloudy Urine pH 5.0 Ur Specific [place] 1.023 Urine Protein 100 mg/dl Urine Glucose (UA) Neg Urine Ketones Neg Urine Blood Neg Urine Nitrite Neg Urine Bilirubin Neg Urine Urobilinogen 2.0 Ur Leukocyte Esterase Tr Urine WBC (Auto) 5.0 Urine RBC (Auto) 1.0 U Epithel Cells (Auto) 3.0 Urine Bacteria (Auto) 3+ Calcium Oxalate Crystal 1+ Urine Mucus 3+ Blood Type Antibody Screen 05/24/19 05/25/19 05/25/19 22:12 04:57 06:21 WBC RBC Hgb Hct MCV MCH MCHC RDW Plt Count Lymph % (Auto) [place] % (Auto) Eos % (Auto) Baso % (Auto) Lymph # [place] # Eos # Baso # Seg Neutrophils % Seg Neutrophils # Creatinine Estimated GFR POC Glucose 120 H Uric Acid Magnesium 4.50 H 5.10 H AST ALT Lactate Dehydrogenase Urine Color Urine Turbidity Urine pH Ur Specific [place] Urine Protein Urine Glucose (UA) Urine Ketones Urine Blood Urine Nitrite Urine Bilirubin Urine Urobilinogen Ur Leukocyte Esterase Urine WBC (Auto) Urine RBC (Auto) U Epithel Cells (Auto) Urine Bacteria (Auto) Calcium Oxalate Crystal Urine Mucus Blood Type Antibody Screen
[2019-05-25] MEDS ORDERED: TYLENOL PO PRN (07:30)
[2019-05-25] MEDS: GLUCOPHAGE PO SCH ×2 (08:45→17:18)
[2019-05-25 09:22] LABS: Hematocrit 37.5 % (30.3-42.9); Mean Corpuscular HGB Conc 35 % (30-34); Mean Corpuscular Volume 99 fl (79-97); Platelet Count 425 K/mm3 (140-440); Red Blood Count 3.77 M/mm3 (3.65-5.03); Red Cell Distribution Width 13.1 % (13.2-15.2)
[2019-05-25 09:47] LABS: Alanine Aminotransferase 16 units/L (7-56); Uric Acid 4.6 mg/dL (3.5-7.6)
[2019-05-25] MEDS: PRENATAL VITAMIN PO SCH (11:07)
[2019-05-25] MEDS: NORMODYNE PO SCH ×3 (11:07→21:52)
--- NOTE | 2019-05-25 13:21 | Consultation ---
History of Present Illness Consult date: 05/25/19 Requesting physician: JEFFERY SU Reason for consult: other (CHTN, Type 2 DM, Hypothyroidism) History of present illness: This is a 33 year old AA female, 35 1/7 weeks,MARC 06/28/19 who was sent from our [facility] location secondary to elevated BP with h/a. Patient has CHTN, Type 2 DM, Hypothyroidism, Hx DVT. Fetus IUGR at the 6th percentile on ultrasound dated 05/24/19. Patient denies epigastric pain, visual disturbances but continues to complain of headache. Patient reports that her headache is present even after taking pain medication. She denies vaginal bleeding, leakage of fluid, persistent cramping/contractions. Past History Past Medical History: hypertension, diabetes, deep vein thrombosis, other (see HPI) Past Surgical History: other (see HPI) PLEATER HAND History: other (see HPI) Family/Genetic History: diabetes, other (see HPI) Social history: no significant social history - Obstetrical History : 3 Medications and Allergies Allergies Allergy/AdvReac Type Severity Reaction Status Date / Time Penicillins AdvReac N/V Verified 11/24/14 09:18 Home Medications Medication Instructions Recorded Confirmed Last Taken Type Acetaminophen [Acetaminophen 8 650 mg PO Q6HR PRN #30 tablet.er 03/20/19 Unknown Rx Hour] Albuterol Sulfate [Albuterol 0.63% 0.63 mg IH Q4HR PRN #2 ml 03/20/19 Unknown Rx NEBS] Albuterol Sulfate [Proair 90 mcg IH Q4HR PRN #2 [email or web address] 03/20/19 Unknown Rx Respiclick] Cefdinir 600 mg PO QDAY #14 capsule 03/20/19 Unknown Rx Active Meds: Active Medications Acetaminophen (Tylenol) 500 mg PO Q6H PRN PRN Reason: Pain, Mild (1-3) Last Admin: 05/25/19 07:50 Dose: 500 mg Documented by: Betamethasone Acet/Betameth SodPhos (Celestone Soluspan) 12 mg IM Q24H IRIS Stop: 05/25/19 15:01 Last Admin: 05/24/19 16:08 Dose: 12 mg Documented by: Docusate Sodium (Colace) 100 mg PO Q12H PRN PRN Reason: Constipation Lactated Ringer's (Lactated Ringers) 1,000 mls @ 125 mls/hr IV DIRECT [facility] Last Admin: 05/25/19 02:26 Dose: 125 mls/hr Documented by: Magnesium Sulfate (Magnesium Sulfate 40gm/1000ml) 40 gm in 1,000 mls @ 50 mls/hr IV DIRECT [facility] Last Admin: 05/24/19 16:31 Dose: 2 gm/hr, 50 mls/hr Documented by: Insulin Human Isoph/Insulin Regular (Humulin 70/30) 15 unit SUB-Q QHS [facility] Last Admin: 05/24/19 23:59 Dose: 15 unit Documented by: Labetalol HCl (Normodyne) 200 mg PO BID [facility] Last Admin: 05/25/19 12:17 Dose: 200 mg Documented by: Levothyroxine Sodium (Synthroid) 150 mcg PO DAILY@0600 [facility] Last Admin: 05/25/19 06:10 Dose: 150 mcg Documented by: Levothyroxine Sodium (Synthroid) 25 mcg PO DAILY@0600 [facility] Last Admin: 05/25/19 06:10 Dose: 25 mcg Documented by: Metformin HCl (Glucophage) 1,000 mg PO BIDDIAB [facility] Last Admin: 05/25/19 08:45 Dose: 1,000 mg Documented by: Multivitamins/Iron/Calcium ( Vitamin) 1 each PO QDAY [facility] Last Admin: 05/25/19 11:07 Dose: 1 each Documented by: Zolpidem Tartrate (Ambien) 10 mg PO ONCE PRN PRN Reason: Sleep Last Admin: 05/24/19 21:30 Dose: 10 mg Documented by: Review of Systems Constitutional: other (Reports current headache. Denies decreased appetite, fever, chills.) Eyes: normal appearance Cardiovascular: other (denies chest pain, dyspnea on exertion) Gastrointestinal: other (denies persistent cramping/contractions, epigastric pain.) Genitourinary: other (denies contractions, vaginal bleeding) Rectal Exam: deferred Neurological: other (Reports headache. ) - Vital Signs Vital signs: Vital Signs Pulse BP 92 H 139/90 05/24/19 14:43 05/24/19 14:43 Temp Pulse Resp BP Pulse Ox 96.1 F L 101 H 18 125/66 98 05/25/19 04:22 05/25/19 13:13 05/25/19 04:22 05/25/19 12:36 05/25/19 13:13 - Physical Exam Cardiovascular: Regular rate Lungs: Positive: Normal air movement Abdomen: Positive: other (gravid) Results Result Diagrams: 05/25/19 08:55 05/25/19 08:55 Abnormal lab results 05/24/19 05/24/19 05/24/19 Range/Units 15:40 15:40 21:31 RBC 3.42 L (3.65-5.03) M/mm3 MCV 98 H (79-97) fl MCH 34 H (28-32) pg MCHC 35 H (30-34) % RDW 12.9 L (13.2-15.2) % [place] % (Auto) 8.1 H (0.0-7.3) % Creatinine 0.6 L (0.7-1.2) mg/dL POC Glucose 140 H (70-105) Magnesium (1.7-2.3) mg/dL 05/24/19 05/25/19 05/25/19 Range/Units 22:12 04:57 06:21 RBC (3.65-5.03) M/mm3 MCV (79-97) fl MCH (28-32) pg MCHC (30-34) % RDW (13.2-15.2) % [place] % (Auto) (0.0-7.3) % Creatinine (0.7-1.2) mg/dL POC Glucose 120 H (70-105) Magnesium 4.50 H 5.10 H (1.7-2.3) mg/dL 05/25/19 05/25/19 05/25/19 Range/Units 08:55 08:55 08:55 RBC (3.65-5.03) M/mm3 MCV 99 H (79-97) fl MCH 34 H (28-32) pg MCHC 35 H (30-34) % RDW 13.1 L (13.2-15.2) % [place] % (Auto) (0.0-7.3) % Creatinine 0.6 L (0.7-1.2) mg/dL POC Glucose (70-105) Magnesium 5.30 H (1.7-2.3) mg/dL 05/25/19 Range/Units 11:39 RBC (3.65-5.03) M/mm3 MCV (79-97) fl MCH (28-32) pg MCHC (30-34) % RDW (13.2-15.2) % [place] % (Auto) (0.0-7.3) % Creatinine (0.7-1.2) mg/dL POC Glucose 112 H (70-105) Magnesium (1.7-2.3) mg/dL All other labs normal. Assessment and Plan Assessment 1. 35 1/7 weeks, IUP 2. Type 2 DM; stable blood glucose 3. CHTN; managed on Labetalol 200 mg BID 4. hx DVT; was managed on Lovenox 40 mg 5. Hypothyroidism; managed on Levothyroxine 175 mcg daily 6. AMA 7. IUGR per [facility] ultrasound done 05/24/19 EFW was 2045 g at 6 percentile 8. Obesity 9. Magnesium Therapy in Progress 10. S/P first dose of steroid for lung maturity Recommendations 1. NICU consultation 2. Discontinue Lovenox. Resume after delivery 3. Continue Accucheck fasting and 2 hours after meals 4. BPP today 5. Steroid for lung maturity 6. With continued headache patient should be delivered. 7. Continue Magnesium therapy as ordered Thank you for giving us the opportunity to participate in the care of this patient. Feel free to contact our oncall physician, Dr. Brown with any questions or concerns.
[2019-05-25] MEDS ORDERED: ZOFRAN IV NR (13:56)
[2019-05-25] MEDS ORDERED: ZOFRAN ONE (14:06)
[2019-05-25] MEDS: MAGNESIUM SULFATE 40GM/1000ML 40 GM/1,000 ML BAG IV SCH (14:12)
[2019-05-25] MEDS ORDERED: FIORICET PO PRN (14:19)
[2019-05-25] MEDS ORDERED: CELESTONE SOLUSPAN IM NR (17:00)
[2019-05-25] MEDS: CELESTONE SOLUSPAN IM SCH (17:15)
--- NOTE | 2019-05-25 19:03 | Consultation ---
Consult Note - Parent Education I met with parent(s) and discussed the following:: Need for NICU admission, Poss ible need for intubation and surfactant or other resp support, Temperature regulation, Possible need for IV fluids/TPN and IV antibiotics, Possible need for umbilical lines, Importance of providing breast milk & encouraged pumping aft delivery, Slow feeding advancement and monitoring of tolerance. NG/OG feeds, Need to monitor for jaundice Parent(s) demonstrated understanding of all the information:: Yes Additional Comment: IUGR female . Mother continues to have IBRAHIM, BP normalized at present. Best case scenario ( to MB with mom) to worse case scenario discussed (vent, surfactant, line). Asked very appropriate questions and mother and father verbalized understanding. Assessment and Plan - Plan Plan: Agree with Mag & steroids Will attend delivery Please call NICU with questions
[2019-05-25] MEDS ORDERED: MAGNESIUM SULFATE 40GM/1000ML 40 GM/1,000 ML BAG IV SCH (21:47)
[2019-05-26] MEDS: LACTATED RINGERS 1,000 ML IV SCH ×3 (02:24→23:54)
[2019-05-26] MEDS ORDERED: CERVIDIL VG ONE (03:34)
--- NOTE | 2019-05-26 03:38 | Progress Note ---
Assessment and Plan As per APA recommendation if IBRAHIM persists move forward with IOL. Discussed this with pt, she agrees with POC. All questions addressed. MGSO4 remains @ 1gm/hr. SVE 1/2cm,thick, OOP. Cervidil ordered. Tylenol ordered. Will start Clindamycin, GBS unknown. made aware. Subjective - Subjective Date of service: 05/26/19 (pt called out c/o IBRAHIM) Principal diagnosis: IUP @ 35+2; DM, mild pre-e, IUGR, hypothyroid Patient reports: movement normal, other (IBRAHIM is now a dull pain but has not resolved), no new complaints Objective - Vital Signs Vital Signs: Vital Signs - 12hr 05/25/19 05/25/19 05/25/19 15:36 15:38 15:43 Temperature Pulse Rate 87 85 88 Respiratory Rate Blood Pressure 121/71 O2 Sat by Pulse 96 96 Oximetry 05/25/19 05/25/19 05/25/19 15:48 15:53 15:58 Temperature Pulse Rate 85 87 87 Respiratory Rate Blood Pressure O2 Sat by Pulse 96 96 96 Oximetry 05/25/19 05/25/19 05/25/19 16:03 16:08 16:13 Temperature Pulse Rate 86 90 83 Respiratory Rate Blood Pressure O2 Sat by Pulse 95 96 95 Oximetry 05/25/19 05/25/19 05/25/19 16:18 16:23 16:24 Temperature Pulse Rate 87 87 88 Respiratory Rate Blood Pressure O2 Sat by Pulse 96 96 94 Oximetry 05/25/19 05/25/19 05/25/19 16:28 16:33 16:36 Temperature Pulse Rate 90 86 86 Respiratory Rate Blood Pressure 124/65 O2 Sat by Pulse 95 97 Oximetry 05/25/19 05/25/19 05/25/19 16:38 16:43 16:48 Temperature Pulse Rate 89 87 89 Respiratory Rate Blood Pressure O2 Sat by Pulse 97 98 99 Oximetry 05/25/19 05/25/19 05/25/19 16:53 16:58 17:03 Temperature Pulse Rate 95 H 86 85 Respiratory Rate Blood Pressure O2 Sat by Pulse 96 97 98 Oximetry 05/25/19 05/25/19 05/25/19 17:08 17:13 17:18 Temperature Pulse Rate 88 96 H 98 H Respiratory Rate Blood Pressure O2 Sat by Pulse 98 99 99 Oximetry 05/25/19 05/25/19 05/25/19 17:23 17:28 17:33 Temperature Pulse Rate 96 H 89 91 H Respiratory Rate Blood Pressure O2 Sat by Pulse 97 99 99 Oximetry 05/25/19 05/25/19 05/25/19 17:36 17:38 17:43 Temperature Pulse Rate 90 85 90 Respiratory Rate Blood Pressure 119/64 O2 Sat by Pulse 99 98 Oximetry 05/25/19 05/25/19 05/25/19 17:44 17:48 17:53 Temperature Pulse Rate 94 H 88 90 Respiratory Rate Blood Pressure O2 Sat by Pulse 92 99 98 Oximetry 05/25/19 05/25/19 05/25/19 17:58 18:03 18:08 Temperature Pulse Rate 93 H 89 95 H Respiratory Rate Blood Pressure O2 Sat by Pulse 98 98 98 Oximetry 05/25/19 05/25/19 05/25/19 18:13 18:18 18:23 Temperature Pulse Rate 89 90 88 Respiratory Rate Blood Pressure O2 Sat by Pulse 98 98 98 Oximetry 05/25/19 05/25/19 05/25/19 18:28 18:33 18:36 Temperature Pulse Rate 90 91 H 89 Respiratory Rate Blood Pressure 119/64 O2 Sat by Pulse 98 98 Oximetry 05/25/19 05/25/19 05/25/19 18:38 18:43 18:48 Temperature Pulse Rate 86 90 92 H Respiratory Rate Blood Pressure O2 Sat by Pulse 98 98 98 Oximetry 05/25/19 05/25/19 05/25/19 18:53 18:58 19:03 Temperature Pulse Rate 93 H 94 H 88 Respiratory Rate Blood Pressure O2 Sat by Pulse 98 97 98 Oximetry 05/25/19 05/25/19 05/25/19 19:08 19:13 19:18 Temperature Pulse Rate 93 H 94 H 94 H Respiratory Rate Blood Pressure O2 Sat by Pulse 97 98 98 Oximetry 05/25/19 05/25/19 05/25/19 19:23 19:28 19:33 Temperature Pulse Rate 96 H 91 H 90 Respiratory Rate Blood Pressure O2 Sat by Pulse 98 98 98 Oximetry 05/25/19 05/25/19 05/25/19 19:37 19:38 19:43 Temperature Pulse Rate 96 H 95 H 93 H Respiratory Rate Blood Pressure 123/76 O2 Sat by Pulse 98 98 Oximetry 05/25/19 05/25/19 05/25/19 19:48 19:52 19:56 Temperature 96.6 F L Pulse Rate 94 H 94 H 93 H Respiratory 20 Rate Blood Pressure 131/69 O2 Sat by Pulse 98 98 Oximetry 05/25/19 05/25/19 05/25/19 19:58 20:03 20:08 Temperature Pulse Rate 93 H 91 H 93 H Respiratory Rate Blood Pressure O2 Sat by Pulse 97 97 97 Oximetry 05/25/19 05/25/19 05/25/19 20:13 20:18 20:23 Temperature Pulse Rate 91 H 104 H 94 H Respiratory Rate Blood Pressure O2 Sat by Pulse 97 96 97 Oximetry 05/25/19 05/25/19 05/25/19 20:28 20:33 20:36 Temperature Pulse Rate 94 H 94 H 92 H Respiratory Rate Blood Pressure 114/65 O2 Sat by Pulse 98 98 Oximetry 05/25/19 05/25/19 05/25/19 20:38 20:43 20:48 Temperature Pulse Rate 97 H 95 H 93 H Respiratory Rate Blood Pressure O2 Sat by Pulse 97 97 97 Oximetry 05/25/19 05/25/19 05/25/19 20:53 20:58 21:03 Temperature Pulse Rate 92 H 98 H 94 H Respiratory Rate Blood Pressure O2 Sat by Pulse 98 98 98 Oximetry 05/25/19 05/25/19 05/25/19 21:05 21:08 21:13 Temperature Pulse Rate 95 H 96 H Respiratory 20 Rate Blood Pressure O2 Sat by Pulse 98 97 Oximetry 05/25/19 05/25/19 05/25/19 21:18 21:23 21:28 Temperature Pulse Rate 94 H 102 H 96 H Respiratory Rate Blood Pressure O2 Sat by Pulse 97 98 97 Oximetry 05/25/19 05/25/19 05/25/19 21:33 21:35 21:38 Temperature Pulse Rate 102 H 103 H 106 H Respiratory Rate Blood Pressure 138/68 O2 Sat by Pulse 97 97 Oximetry 05/25/19 05/25/19 05/25/19 21:43 21:48 21:52 Temperature Pulse Rate 100 H 99 H 94 H Respiratory Rate Blood Pressure O2 Sat by Pulse 97 97 Oximetry 05/25/19 05/25/19 05/25/19 21:53 21:55 21:58 Temperature Pulse Rate 98 H 96 H 98 H Respiratory Rate Blood Pressure 108/56 O2 Sat by Pulse 97 97 Oximetry 05/25/19 05/25/19 05/25/19 22:01 22:03 22:08 Temperature Pulse Rate 95 H 94 H Respiratory 18 Rate Blood Pressure O2 Sat by Pulse 97 98 Oximetry 05/25/19 05/25/19 05/25/19 22:13 22:18 22:23 Temperature Pulse Rate 93 H 97 H 98 H Respiratory Rate Blood Pressure O2 Sat by Pulse 98 97 96 Oximetry 05/25/19 05/25/19 05/25/19 22:28 22:33 22:35 Temperature Pulse Rate 97 H 99 H 96 H Respiratory Rate Blood Pressure 116/63 O2 Sat by Pulse 96 96 Oximetry 05/25/19 05/25/19 05/25/19 22:38 22:43 22:48 Temperature Pulse Rate 97 H 96 H 96 H Respiratory Rate Blood Pressure O2 Sat by Pulse 96 97 96 Oximetry 05/25/19 05/25/19 05/25/19 22:53 22:58 23:03 Temperature Pulse Rate 95 H 96 H 95 H Respiratory Rate Blood Pressure O2 Sat by Pulse 97 96 97 Oximetry 05/25/19 05/25/19 05/25/19 23:08 23:10 23:13 Temperature Pulse Rate 93 H 92 H Respiratory 18 Rate Blood Pressure O2 Sat by Pulse 97 96 Oximetry 05/25/19 05/25/19 05/25/19 23:18 23:23 23:28 Temperature Pulse Rate 93 H 91 H 91 H Respiratory Rate Blood Pressure O2 Sat by Pulse 96 96 96 Oximetry 05/25/19 05/25/19 05/25/19 23:33 23:36 23:38 Temperature Pulse Rate 92 H 92 H 88 Respiratory Rate Blood Pressure 110/61 O2 Sat by Pulse 96 97 Oximetry 05/25/19 05/25/19 05/25/19 23:43 23:48 23:53 Temperature Pulse Rate 93 H 89 92 H Respiratory Rate Blood Pressure O2 Sat by Pulse 96 95 95 Oximetry 05/25/19 05/25/19 05/26/19 23:56 23:58 00:03 Temperature Pulse Rate 90 90 88 Respiratory Rate Blood Pressure O2 Sat by Pulse 93 95 96 Oximetry 05/26/19 05/26/19 05/26/19 00:04 00:08 00:10 Temperature 97.7 F Pulse Rate 90 87 Respiratory 18 Rate Blood Pressure O2 Sat by Pulse 96 94 Oximetry 05/26/19 05/26/19 05/26/19 00:13 00:18 00:23 Temperature Pulse Rate 91 H 91 H 91 H Respiratory Rate Blood Pressure O2 Sat by Pulse 95 95 95 Oximetry 05/26/19 05/26/19 05/26/19 00:27 00:28 00:33 Temperature Pulse Rate 96 H 88 98 H Respiratory Rate Blood Pressure O2 Sat by Pulse 94 96 94 Oximetry 05/26/19 05/26/19 05/26/19 00:36 00:38 00:43 Temperature Pulse Rate 91 H 91 H 91 H Respiratory Rate Blood Pressure 90/52 O2 Sat by Pulse 95 95 Oximetry 05/26/19 05/26/19 05/26/19 00:48 00:53 00:55 Temperature Pulse Rate 91 H 97 H 95 H Respiratory Rate Blood Pressure O2 Sat by Pulse 95 95 93 Oximetry 05/26/19 05/26/19 05/26/19 00:58 01:03 01:08 Temperature Pulse Rate 98 H 98 H 92 H Respiratory Rate Blood Pressure O2 Sat by Pulse 96 96 96 Oximetry 05/26/19 05/26/19 05/26/19 01:10 01:13 01:15 Temperature Pulse Rate 91 H 89 Respiratory 18 Rate Blood Pressure O2 Sat by Pulse 94 96 Oximetry 05/26/19 05/26/19 05/26/19 01:18 01:23 01:28 Temperature Pulse Rate 90 91 H 88 Respiratory Rate Blood Pressure O2 Sat by Pulse 96 96 97 Oximetry 05/26/19 05/26/19 05/26/19 01:33 01:36 01:38 Temperature Pulse Rate 86 88 87 Respiratory Rate Blood Pressure 99/57 O2 Sat by Pulse 96 96 Oximetry 05/26/19 05/26/19 05/26/19 01:43 01:48 01:50 Temperature Pulse Rate 92 H 91 H 90 Respiratory Rate Blood Pressure O2 Sat by Pulse 95 96 94 Oximetry 05/26/19 05/26/19 05/26/19 01:53 01:58 02:03 Temperature Pulse Rate 86 89 87 Respiratory Rate Blood Pressure O2 Sat by Pulse 95 94 96 Oximetry 05/26/19 05/26/19 05/26/19 02:08 02:13 02:18 Temperature Pulse Rate 88 89 93 H Respiratory Rate Blood Pressure O2 Sat by Pulse 94 96 95 Oximetry 05/26/19 05/26/19 05/26/19 02:23 02:24 02:28 Temperature Pulse Rate 87 90 Respiratory 16 Rate Blood Pressure O2 Sat by Pulse 96 96 Oximetry 05/26/19 05/26/19 05/26/19 02:33 02:36 02:38 Temperature Pulse Rate 98 H 88 90 Respiratory Rate Blood Pressure 87/52 O2 Sat by Pulse 94 96 Oximetry 05/26/19 05/26/19 05/26/19 02:43 02:48 02:53 Temperature Pulse Rate 90 92 H 95 H Respiratory Rate Blood Pressure O2 Sat by Pulse 96 96 96 Oximetry 05/26/19 05/26/19 05/26/19 02:58 03:03 03:08 Temperature Pulse Rate 95 H 94 H 95 H Respiratory Rate Blood Pressure O2 Sat by Pulse 97 96 96 Oximetry 05/26/19 05/26/19 05/26/19 03:13 03:18 03:23 Temperature Pulse Rate 96 H 95 H 94 H Respiratory Rate Blood Pressure O2 Sat by Pulse 97 97 97 Oximetry 05/26/19 05/26/19 03:26 03:28 Temperature Pulse Rate 93 H 91 H Respiratory Rate Blood Pressure 109/56 O2 Sat by Pulse 96 Oximetry - Exam Breasts: deferred Cardiovascular: Regular rate Lungs: Normal air movement Abdomen: Present: normal appearance, soft. Absent: distention, tenderness Uterus: Present: normal FHR: auscultation normal, category 1 Uterine Contraction Monitor Mode: External Cervical Dilatation: 0.5 Cervical Effacement Percentage: 30 station: -3 Uterine Contraction Pattern: Irregular Uterine Tone Measurement Phase: Resting Uterine Contraction Intensity: Mild Extremities: normal Deep Tendon Reflex Grade: Normal +2 - Labs Labs: Abnormal Labs 05/24/19 05/24/19 05/24/19 15:40 15:40 21:31 RBC 3.42 L MCV 98 H MCH 34 H MCHC 35 H RDW 12.9 L [place] % (Auto) 8.1 H Creatinine 0.6 L POC Glucose 140 H Magnesium 05/24/19 05/25/19 05/25/19 22:12 04:57 06:21 RBC MCV MCH MCHC RDW [place] % (Auto) Creatinine POC Glucose 120 H Magnesium 4.50 H 5.10 H 05/25/19 05/25/1919 08:55 08:55 08:55 RBC MCV 99 H MCH 34 H MCHC 35 H RDW 13.1 L [place] % (Auto) Creatinine 0.6 L POC Glucose Magnesium 5.30 H 05/25/19 05/25/19 05/25/19 11:39 14:50 17:05 RBC MCV MCH MCHC RDW [place] % (Auto) Creatinine POC Glucose 112 H 113 H Magnesium 5.60 H 05/25/19 05/25/19 05/26/19 20:15 23:05 00:04 RBC MCV MCH MCHC RDW [place] % (Auto) Creatinine POC Glucose 163 H 152 H Magnesium 4.80 H 05/26/19 02:41 RBC MCV MCH MCHC RDW [place] % (Auto) Creatinine POC Glucose Magnesium 4.40 H Laboratory Results - last 24 hr 05/25/19 05/25/19 05/25/19 04:57 06:21 08:55 WBC RBC Hgb Hct MCV MCH MCHC RDW Plt Count Creatinine Estimated GFR POC Glucose 120 H Uric Acid Magnesium 5.10 H 5.30 H AST ALT Lactate Dehydrogenase 05/25/19 05/25/19 05/25/19 08:55 08:55 11:39 WBC 10.8 RBC 3.77 Hgb 13.0 Hct 37.5 MCV 99 H MCH 34 H MCHC 35 H RDW 13.1 L Plt Count 425 Creatinine 0.6 L Estimated GFR > 60 POC Glucose 112 H Uric Acid 4.6 Magnesium AST 16 ALT 16 Lactate Dehydrogenase 161 05/25/19 05/25/19 05/25/19 14:50 17:05 20:15 WBC RBC Hgb Hct MCV MCH MCHC RDW Plt Count Creatinine Estimated GFR POC Glucose 113 H 163 H Uric Acid Magnesium 5.60 H AST ALT Lactate Dehydrogenase 05/25/19 05/26/19 05/26/19 23:05 00:04 02:41 WBC RBC Hgb Hct MCV MCH MCHC RDW Plt Count Creatinine Estimated GFR POC Glucose 152 H Uric Acid Magnesium 4.80 H 4.40 H AST ALT Lactate Dehydrogenase
[2019-05-26] MEDS ORDERED: CLEOCIN 900 MG/50 mL 900 MG/50 ML BAG IV ONE (03:58)
[2019-05-26] MEDS: TYLENOL PO PRN ×2 (03:59→10:51)
[2019-05-26] MEDS: CLEOCIN 900 MG/50 mL 900 MG/50 ML BAG IV SCH ×3 (04:00→21:57)
[2019-05-26] MEDS: SYNTHROID PO SCH ×2 (06:37→06:38)
[2019-05-26] MEDS: GLUCOPHAGE PO SCH ×2 (09:08→16:58)
--- NOTE | 2019-05-26 09:39 | Event Note ---
Date: 05/26/19 Decision made by personal carer team to proceed with IOL. Cervidil placed at 0400. Will con't until 1600pm. At this time will evaluate. Cont serial IOL at this time.
[2019-05-26] MEDS: PRENATAL VITAMIN PO SCH (10:36)
[2019-05-26] MEDS: NORMODYNE PO SCH ×2 (10:36→22:00)
[2019-05-26] MEDS: SUBLIMAZE IV PRN ×4 (12:33→21:58)
--- NOTE | 2019-05-26 16:54 | Event Note ---
Date: 05/26/19 Called by RN. Pt 1cm after cervidil removed. Will allow dinner and pericare and replace cervidil at 1900pm. Plan of care was d/w pt earlier and all questions were addressed and answered. Serial IOL was also d/w pt and again questions were addressed and answered.
[2019-05-26] MEDS ORDERED: PITOCin/NS 30 UNIT/500ML 30 UNITS/500 ML BAG IV SCH (22:00)
[2019-05-27] MEDS: SUBLIMAZE IV PRN ×4 (00:13→09:11)
[2019-05-27] MEDS: SYNTHROID PO SCH ×2 (06:40)
[2019-05-27] MEDS: CLEOCIN 900 MG/50 mL 900 MG/50 ML BAG IV SCH (06:41)
[2019-05-27] MEDS: MAGNESIUM SULFATE 40GM/1000ML 40 GM/1,000 ML BAG IV SCH (07:48)
--- NOTE | 2019-05-27 07:56 | Progress Note ---
<SCOTT REYNOLDS - Last Filed: 05/27/19 07:52> Assessment and Plan Pt req pain meds also desires epidural. SVE 4,70,-1. Pitocin per protocol. Bolus for epidural started. Re-eval after epidural Subjective - Subjective Date of service: 05/27/19 (pt c/o worsening ctx) Principal diagnosis: IUP @ 35+3; DM, mild pre-e, IUGR, hypothyroid Patient reports: movement normal, other (IBRAHIM is now a dull pain but has not resolved), no new complaints Objective - Vital Signs Vital Signs: Vital Signs - 12hr 05/26/19 05/26/19 05/26/19 19:53 19:55 19:58 Pulse Rate 85 84 85 Respiratory 16 Rate Blood Pressure 130/72 Blood Pressure 130/72 [Left] O2 Sat by Pulse 97 97 Oximetry 05/26/19 05/26/19 05/26/19 20:03 20:08 20:13 Pulse Rate 81 73 79 Respiratory Rate Blood Pressure Blood Pressure [Left] O2 Sat by Pulse 98 97 97 Oximetry 05/26/19 05/26/19 05/26/19 20:18 20:23 20:28 Pulse Rate 90 78 77 Respiratory Rate Blood Pressure 126/69 Blood Pressure [Left] O2 Sat by Pulse 98 97 97 Oximetry 05/26/19 05/26/19 05/26/19 20:33 20:38 20:43 Pulse Rate 76 75 79 Respiratory Rate Blood Pressure Blood Pressure [Left] O2 Sat by Pulse 97 97 97 Oximetry 05/26/19 05/26/19 05/26/19 20:48 20:53 20:58 Pulse Rate 77 84 80 Respiratory Rate Blood Pressure Blood Pressure [Left] O2 Sat by Pulse 96 96 97 Oximetry 05/26/19 05/26/19 05/26/19 21:03 21:08 21:13 Pulse Rate 77 78 69 Respiratory Rate Blood Pressure Blood Pressure [Left] O2 Sat by Pulse 97 96 96 Oximetry 05/26/19 05/26/19 05/26/19 21:17 21:18 21:23 Pulse Rate 85 88 90 Respiratory Rate Blood Pressure Blood Pressure [Left] O2 Sat by Pulse 94 94 94 Oximetry 05/26/19 05/26/19 05/26/19 21:28 21:33 21:38 Pulse Rate 80 75 85 Respiratory Rate Blood Pressure 123/65 Blood Pressure [Left] O2 Sat by Pulse 98 98 97 Oximetry 05/26/19 05/26/19 05/26/19 21:43 21:48 21:53 Pulse Rate 83 80 80 Respiratory Rate Blood Pressure Blood Pressure [Left] O2 Sat by Pulse 98 98 97 Oximetry 05/26/19 05/26/19 05/26/19 21:58 22:03 22:08 Pulse Rate 81 79 86 Respiratory Rate Blood Pressure Blood Pressure [Left] O2 Sat by Pulse 98 98 96 Oximetry 05/26/19 05/26/19 05/26/19 22:13 22:18 22:23 Pulse Rate 84 88 81 Respiratory Rate Blood Pressure Blood Pressure [Left] O2 Sat by Pulse 97 98 97 Oximetry 05/26/19 05/26/19 05/26/19 22:27 22:28 22:33 Pulse Rate 79 82 78 Respiratory Rate Blood Pressure 119/64 Blood Pressure [Left] O2 Sat by Pulse 97 96 Oximetry 05/26/19 05/26/19 05/26/19 22:38 22:43 22:48 Pulse Rate 79 82 81 Respiratory Rate Blood Pressure Blood Pressure [Left] O2 Sat by Pulse 96 96 95 Oximetry 05/26/19 05/26/19 05/26/19 22:53 22:58 23:03 Pulse Rate 94 H 77 76 Respiratory Rate Blood Pressure Blood Pressure [Left] O2 Sat by Pulse 96 95 95 Oximetry 05/26/19 05/26/19 05/26/19 23:07 23:08 23:13 Pulse Rate 92 H 90 88 Respiratory Rate Blood Pressure Blood Pressure [Left] O2 Sat by Pulse 94 95 94 Oximetry 05/26/19 05/26/19 05/26/19 23:18 23:23 23:27 Pulse Rate 78 80 74 Respiratory Rate Blood Pressure 114/63 Blood Pressure [Left] O2 Sat by Pulse 97 97 Oximetry 05/26/19 05/26/19 05/26/19 23:28 23:33 23:38 Pulse Rate 80 77 75 Respiratory Rate Blood Pressure Blood Pressure [Left] O2 Sat by Pulse 97 97 97 Oximetry 05/26/19 05/26/19 05/26/19 23:43 23:48 23:53 Pulse Rate 86 71 76 Respiratory Rate Blood Pressure Blood Pressure [Left] O2 Sat by Pulse 97 96 97 Oximetry 05/26/19 05/27/19 05/27/19 23:58 00:03 00:08 Pulse Rate 77 73 77 Respiratory Rate Blood Pressure Blood Pressure [Left] O2 Sat by Pulse 97 97 97 Oximetry 05/27/19 05/27/19 05/27/19 00:13 00:18 00:23 Pulse Rate 77 77 77 Respiratory Rate Blood Pressure Blood Pressure [Left] O2 Sat by Pulse 97 97 94 Oximetry 05/27/19 05/27/19 05/27/19 00:28 00:33 00:38 Pulse Rate 89 105 H 107 H Respiratory Rate Blood Pressure 117/63 Blood Pressure [Left] O2 Sat by Pulse 97 94 97 Oximetry 05/27/19 05/27/19 05/27/19 00:43 00:48 00:53 Pulse Rate 81 76 80 Respiratory Rate Blood Pressure Blood Pressure [Left] O2 Sat by Pulse 100 100 99 Oximetry 05/27/19 05/27/19 05/27/19 00:58 01:03 01:08 Pulse Rate 80 107 H 96 H Respiratory Rate Blood Pressure Blood Pressure [Left] O2 Sat by Pulse 99 97 100 Oximetry 05/27/19 05/27/19 05/27/19 01:13 01:18 01:23 Pulse Rate 96 H 88 83 Respiratory Rate Blood Pressure Blood Pressure [Left] O2 Sat by Pulse 100 100 100 Oximetry 05/27/19 05/27/19 05/27/19 01:28 01:33 01:38 Pulse Rate 82 87 85 Respiratory Rate Blood Pressure Blood Pressure [Left] O2 Sat by Pulse 100 97 97 Oximetry 05/27/19 05/27/19 05/27/19 01:43 01:48 01:53 Pulse Rate 82 69 88 Respiratory Rate Blood Pressure Blood Pressure [Left] O2 Sat by Pulse 98 98 97 Oximetry 05/27/19 05/27/19 05/27/19 01:58 02:03 02:08 Pulse Rate 85 87 66 Respiratory Rate Blood Pressure Blood Pressure [Left] O2 Sat by Pulse 97 97 97 Oximetry 05/27/19 05/27/19 05/27/19 02:13 02:18 02:23 Pulse Rate 86 80 87 Respiratory Rate Blood Pressure Blood Pressure [Left] O2 Sat by Pulse 97 97 97 Oximetry 05/27/19 05/27/19 05/27/19 02:28 02:33 02:38 Pulse Rate 71 89 91 H Respiratory Rate Blood Pressure Blood Pressure [Left] O2 Sat by Pulse 97 97 97 Oximetry 05/27/19 05/27/19 05/27/19 02:43 02:48 02:53 Pulse Rate 84 80 82 Respiratory Rate Blood Pressure Blood Pressure [Left] O2 Sat by Pulse 96 97 98 Oximetry 05/27/19 05/27/19 05/27/19 02:58 03:03 03:08 Pulse Rate 84 85 85 Respiratory Rate Blood Pressure Blood Pressure [Left] O2 Sat by Pulse 97 97 98 Oximetry 05/27/19 05/27/19 05/27/19 03:13 03:18 03:23 Pulse Rate 78 83 86 Respiratory Rate Blood Pressure Blood Pressure [Left] O2 Sat by Pulse 97 96 97 Oximetry 05/27/19 05/27/19 05/27/19 03:28 03:32 03:33 Pulse Rate 82 78 79 Respiratory 18 Rate Blood Pressure Blood Pressure [Left] O2 Sat by Pulse 97 94 94 Oximetry 05/27/19 05/27/19 05/27/19 03:38 03:43 03:48 Pulse Rate 72 86 94 H Respiratory Rate Blood Pressure Blood Pressure [Left] O2 Sat by Pulse 96 97 96 Oximetry 05/27/19 05/27/19 05/27/19 03:53 03:58 04:03 Pulse Rate 99 H 81 95 H Respiratory Rate Blood Pressure Blood Pressure [Left] O2 Sat by Pulse 97 95 96 Oximetry 05/27/19 05/27/19 05/27/19 04:08 04:13 04:18 Pulse Rate 87 79 76 Respiratory Rate Blood Pressure Blood Pressure [Left] O2 Sat by Pulse 97 97 97 Oximetry 05/27/19 05/27/19 05/27/19 04:23 04:28 04:33 Pulse Rate 79 77 71 Respiratory Rate Blood Pressure Blood Pressure [Left] O2 Sat by Pulse 97 96 96 Oximetry 05/27/19 05/27/19 05/27/19 04:38 04:43 04:48 Pulse Rate 81 75 83 Respiratory Rate Blood Pressure Blood Pressure [Left] O2 Sat by Pulse 97 97 96 Oximetry 05/27/19 05/27/19 05/27/19 04:53 04:58 05:02 Pulse Rate 85 62 63 Respiratory Rate Blood Pressure Blood Pressure [Left] O2 Sat by Pulse 96 94 94 Oximetry 05/27/19 05/27/19 05/27/19 05:03 05:08 05:13 Pulse Rate 80 77 82 Respiratory Rate Blood Pressure Blood Pressure [Left] O2 Sat by Pulse 95 95 96 Oximetry 05/27/19 05/27/19 05/27/19 05:18 05:23 05:28 Pulse Rate 84 82 83 Respiratory Rate Blood Pressure Blood Pressure [Left] O2 Sat by Pulse 95 95 95 Oximetry 05/27/19 05/27/19 05/27/19 05:30 05:33 05:38 Pulse Rate 64 78 83 Respiratory Rate Blood Pressure Blood Pressure [Left] O2 Sat by Pulse 94 96 97 Oximetry 05/27/19 05/27/19 05/27/19 05:40 05:43 05:48 Pulse Rate 96 H 62 83 Respiratory Rate Blood Pressure Blood Pressure [Left] O2 Sat by Pulse 93 94 95 Oximetry 05/27/19 05/27/19 05/27/19 05:50 05:53 05:58 Pulse Rate 62 77 85 Respiratory Rate Blood Pressure Blood Pressure [Left] O2 Sat by Pulse 93 95 95 Oximetry 05/27/19 05/27/19 05/27/19 06:00 06:03 06:07 Pulse Rate 59 L 79 63 Respiratory Rate Blood Pressure Blood Pressure [Left] O2 Sat by Pulse 93 95 94 Oximetry 05/27/19 05/27/19 05/27/19 06:08 06:13 06:18 Pulse Rate 56 L 86 66 Respiratory Rate Blood Pressure Blood Pressure [Left] O2 Sat by Pulse 96 94 94 Oximetry 05/27/19 05/27/19 05/27/19 06:23 06:26 06:27 Pulse Rate 76 83 82 Respiratory Rate Blood Pressure 117/63 Blood Pressure [Left] O2 Sat by Pulse 97 94 Oximetry 05/27/19 05/27/19 05/27/19 06:28 06:33 06:34 Pulse Rate 81 87 94 H Respiratory Rate Blood Pressure Blood Pressure [Left] O2 Sat by Pulse 95 96 94 Oximetry 05/27/19 05/27/19 05/27/19 06:38 06:43 06:48 Pulse Rate 80 83 85 Respiratory Rate Blood Pressure Blood Pressure [Left] O2 Sat by Pulse 97 96 95 Oximetry 05/27/19 05/27/19 05/27/19 06:53 06:58 07:03 Pulse Rate 86 80 60 Respiratory Rate Blood Pressure Blood Pressure [Left] O2 Sat by Pulse 96 97 97 Oximetry 05/27/19 05/27/19 05/27/19 07:08 07:13 07:18 Pulse Rate 83 81 77 Respiratory Rate Blood Pressure Blood Pressure [Left] O2 Sat by Pulse 95 97 96 Oximetry 05/27/19 05/27/19 05/27/19 07:23 07:27 07:28 Pulse Rate 85 76 77 Respiratory Rate Blood Pressure 108/60 Blood Pressure [Left] O2 Sat by Pulse 95 96 Oximetry 05/27/19 05/27/19 05/27/19 07:33 07:34 07:38 Pulse Rate 76 65 74 Respiratory Rate Blood Pressure Blood Pressure [Left] O2 Sat by Pulse 96 94 95 Oximetry 05/27/19 05/27/19 05/27/19 07:40 07:43 07:46 Pulse Rate 81 75 80 Respiratory Rate Blood Pressure Blood Pressure [Left] O2 Sat by Pulse 94 96 93 Oximetry 05/27/19 07:48 Pulse Rate 77 Respiratory Rate Blood Pressure Blood Pressure [Left] O2 Sat by Pulse 95 Oximetry - Exam Breasts: deferred Cardiovascular: Regular rate Lungs: Normal air movement Abdomen: Present: normal appearance, soft. Absent: distention, tenderness Uterus: Present: normal FHR: auscultation normal, category 1 Uterine Contraction Monitor Mode: External Cervical Dilatation: 4 Cervical Effacement Percentage: 70 station: -1 Uterine Contraction Pattern: Regular Uterine Tone Measurement Phase: Resting Uterine Contraction Intensity: Moderate Extremities: edema Deep Tendon Reflex Grade: Normal +2 - Labs Labs: Abnormal Labs 05/24/19 05/24/19 05/24/19 15:40 15:40 21:31 RBC 3.42 L MCV 98 H MCH 34 H MCHC 35 H RDW 12.9 L [place] % (Auto) 8.1 H Creatinine 0.6 L POC Glucose 140 H Magnesium 05/24/19 05/25/19 05/25/19 22:12 04:57 06:21 RBC MCV MCH MCHC RDW [place] % (Auto) Creatinine POC Glucose 120 H Magnesium 4.50 H 5.10 H 05/25/19 05/25/19 05/25/19 08:55 08:55 08:55 RBC MCV 99 H MCH 34 H MCHC 35 H RDW 13.1 L [place] % (Auto) Creatinine 0.6 L POC Glucose Magnesium 5.30 H 05/25/19 05/25/19 05/25/19 11:39 14:50 17:05 RBC MCV MCH MCHC RDW [place] % (Auto) Creatinine POC Glucose 112 H 113 H Magnesium 5.60 H 05/25/19 05/25/19 05/26/19 20:15 23:05 00:04 RBC MCV MCH MCHC RDW [place] % (Auto) Creatinine POC Glucose 163 H 152 H Magnesium 4.80 H 05/26/19 05/26/19 05/26/19 02:41 08:11 08:59 RBC MCV MCH MCHC RDW [place] % (Auto) Creatinine POC Glucose 118 H Magnesium 4.40 H 4.60 H 05/26/19 05/26/19 05/26/19 11:59 15:24 16:54 RBC MCV MCH MCHC RDW [place] % (Auto) Creatinine POC Glucose 124 H 109 H Magnesium 4.40 H 05/26/19 23:38 RBC MCV MCH MCHC RDW [place] % (Auto) Creatinine POC Glucose 124 H Magnesium Laboratory Results - last 24 hr 05/26/19 05/26/19 05/26/19 08:11 08:59 11:59 POC Glucose 118 H 124 H Magnesium 4.60 H 05/26/19 05/26/19 05/26/19 15:24 16:54 23:38 POC Glucose 109 H 124 H Magnesium 4.40 H <JEFFERY SU D - Last Filed: 05/27/19 09:27> Assessment and Plan - Patient Problems (1) 35 weeks gestation of Current Visit: Yes Status: Acute (2) Pre-eclampsia Current Visit: Yes Status: Acute Plan to address problem: Patient now being induced for continued IBRAHIM, which changes her diagnosis to severe features. Pitocin started as well as MgSO4 prophylaxis. Lungs CTAB. Hrt RRR. Plan of care explained, she was informed of MgSO4 prophylaxis, questions were encouraged and answered, she voiced understanding and agrees with plan of care (3) HTN (hypertension) Current Visit: Yes Status: Acute Qualifiers: Hypertension type: essential hypertension Qualified Code(s): I10 - Essential (primary) hypertension (4) Headache Onset Date: ~05/24/19 Current Visit: Yes Status: Acute Qualifiers: Headache type: tension-type Headache chronicity pattern: acute headache (5) IUGR (intrauterine growth restriction) Current Visit: Yes Status: Acute (6) Diabetes in Current Visit: Yes Status: Acute Qualifiers: Diabetes in type: pre-existing, unspecified type Trimester: third trimester Qualified Code(s): O24.313 - Unspecified pre-existing diabetes mellitus in , third trimester (7) Hypothyroid Current Visit: Yes Status: Acute (8) Proteinuria Current Visit: Yes Status: Acute (9) Protein S deficiency Current Visit: Yes Status: Acute (10) DVT (deep venous thrombosis) Current Visit: Yes Status: Acute (11) TIA (transient ischemic attack) Current Visit: Yes Status: Acute Subjective - Subjective Patient reports: other Objective - Vital Signs Vital Signs: Vital Signs - 12hr 05/26/19 05/26/19 05/26/19 20:08 20:13 20:18 Pulse Rate 73 79 90 Respiratory Rate Blood Pressure O2 Sat by Pulse 97 97 98 Oximetry 05/26/19 05/26/19 05/26/19 20:23 20:28 20:33 Pulse Rate 78 77 76 Respiratory Rate Blood Pressure 126/69 O2 Sat by Pulse 97 97 97 Oximetry 05/26/19 05/26/19 05/26/19 20:38 20:43 20:48 Pulse Rate 75 79 77 Respiratory Rate Blood Pressure O2 Sat by Pulse 97 97 96 Oximetry 05/26/19 05/26/19 05/26/19 20:53 20:58 21:03 Pulse Rate 84 80 77 Respiratory Rate Blood Pressure O2 Sat by Pulse 96 97 97 Oximetry 05/26/19 05/26/19 05/26/19 21:08 21:13 21:17 Pulse Rate 78 69 85 Respiratory Rate Blood Pressure O2 Sat by Pulse 96 96 94 Oximetry 05/26/19 05/26/19 05/26/19 21:18 21:23 21:28 Pulse Rate 88 90 80 Respiratory Rate Blood Pressure 123/65 O2 Sat by Pulse 94 94 98 Oximetry 05/26/19 05/26/19 05/26/19 21:33 21:38 21:43 Pulse Rate 75 85 83 Respiratory Rate Blood Pressure O2 Sat by Pulse 98 97 98 Oximetry 05/26/19 05/26/19 05/26/19 21:48 21:53 21:58 Pulse Rate 80 80 81 Respiratory Rate Blood Pressure O2 Sat by Pulse 98 97 98 Oximetry 05/26/19 05/26/19 05/26/19 22:03 22:08 22:13 Pulse Rate 79 86 84 Respiratory Rate Blood Pressure O2 Sat by Pulse 98 96 97 Oximetry 05/26/19 05/26/19 05/26/19 22:18 22:23 22:27 Pulse Rate 88 81 79 Respiratory Rate Blood Pressure 119/64 O2 Sat by Pulse 98 97 Oximetry 05/26/19 05/26/19 05/26/19 22:28 22:33 22:38 Pulse Rate 82 78 79 Respiratory Rate Blood Pressure O2 Sat by Pulse 97 96 96 Oximetry 05/26/19 05/26/19 05/26/19 22:43 22:48 22:53 Pulse Rate 82 81 94 H Respiratory Rate Blood Pressure O2 Sat by Pulse 96 95 96 Oximetry 05/26/19 05/26/19 05/26/19 22:58 23:03 23:07 Pulse Rate 77 76 92 H Respiratory Rate Blood Pressure O2 Sat by Pulse 95 95 94 Oximetry 05/26/19 05/26/19 05/26/19 23:08 23:13 23:18 Pulse Rate 90 88 78 Respiratory Rate Blood Pressure O2 Sat by Pulse 95 94 97 Oximetry 05/26/19 05/26/19 05/26/19 23:23 23:27 23:28 Pulse Rate 80 74 80 Respiratory Rate Blood Pressure 114/63 O2 Sat by Pulse 97 97 Oximetry 05/26/19 05/26/19 05/26/19 23:33 23:38 23:43 Pulse Rate 77 75 86 Respiratory Rate Blood Pressure O2 Sat by Pulse 97 97 97 Oximetry 05/26/19 05/26/19 05/26/19 23:48 23:53 23:58 Pulse Rate 71 76 77 Respiratory Rate Blood Pressure O2 Sat by Pulse 96 97 97 Oximetry 05/27/19 05/27/19 05/27/19 00:03 00:08 00:13 Pulse Rate 73 77 77 Respiratory Rate Blood Pressure O2 Sat by Pulse 97 97 97 Oximetry 05/27/19 05/27/19 05/27/19 00:18 00:23 00:28 Pulse Rate 77 77 89 Respiratory Rate Blood Pressure 117/63 O2 Sat by Pulse 97 94 97 Oximetry 05/27/19 05/27/19 05/27/19 00:33 00:38 00:43 Pulse Rate 105 H 107 H 81 Respiratory Rate Blood Pressure O2 Sat by Pulse 94 97 100 Oximetry 05/27/19 05/27/19 05/27/19 00:48 00:53 00:58 Pulse Rate 76 80 80 Respiratory Rate Blood Pressure O2 Sat by Pulse 100 99 99 Oximetry 05/27/19 05/27/19 05/27/19 01:03 01:08 01:13 Pulse Rate 107 H 96 H 96 H Respiratory Rate Blood Pressure O2 Sat by Pulse 97 100 100 Oximetry 05/27/19 05/27/19 05/27/19 01:18 01:23 01:28 Pulse Rate 88 83 82 Respiratory Rate Blood Pressure O2 Sat by Pulse 100 100 100 Oximetry 05/27/19 05/27/19 05/27/19 01:33 01:38 01:43 Pulse Rate 87 85 82 Respiratory Rate Blood Pressure O2 Sat by Pulse 97 97 98 Oximetry 05/27/19 05/27/19 05/27/19 01:48 01:53 01:58 Pulse Rate 69 88 85 Respiratory Rate Blood Pressure O2 Sat by Pulse 98 97 97 Oximetry 05/27/19 05/27/19 05/27/19 02:03 02:08 02:13 Pulse Rate 87 66 86 Respiratory Rate Blood Pressure O2 Sat by Pulse 97 97 97 Oximetry 05/27/19 05/27/19 05/27/19 02:18 02:23 02:28 Pulse Rate 80 87 71 Respiratory Rate Blood Pressure O2 Sat by Pulse 97 97 97 Oximetry 05/27/19 05/27/19 05/27/19 02:33 02:38 02:43 Pulse Rate 89 91 H 84 Respiratory Rate Blood Pressure O2 Sat by Pulse 97 97 96 Oximetry 05/27/19 05/27/19 05/27/19 02:48 02:53 02:58 Pulse Rate 80 82 84 Respiratory Rate Blood Pressure O2 Sat by Pulse 97 98 97 Oximetry 05/27/19 05/27/19 05/27/19 03:03 03:08 03:13 Pulse Rate 85 85 78 Respiratory Rate Blood Pressure O2 Sat by Pulse 97 98 97 Oximetry 05/27/19 05/27/19 05/27/19 03:18 03:23 03:28 Pulse Rate 83 86 82 Respiratory 18 Rate Blood Pressure O2 Sat by Pulse 96 97 97 Oximetry 05/27/19 05/27/19 05/27/19 03:32 03:33 03:38 Pulse Rate 78 79 72 Respiratory Rate Blood Pressure O2 Sat by Pulse 94 94 96 Oximetry 05/27/19 05/27/19 05/27/19 03:43 03:48 03:53 Pulse Rate 86 94 H 99 H Respiratory Rate Blood Pressure O2 Sat by Pulse 97 96 97 Oximetry 05/27/19 05/27/19 05/27/19 03:58 04:03 04:08 Pulse Rate 81 95 H 87 Respiratory Rate Blood Pressure O2 Sat by Pulse 95 96 97 Oximetry 05/27/19 05/27/19 05/27/19 04:13 04:18 04:23 Pulse Rate 79 76 79 Respiratory Rate Blood Pressure O2 Sat by Pulse 97 97 97 Oximetry 05/27/19 05/27/19 05/27/19 04:28 04:33 04:38 Pulse Rate 77 71 81 Respiratory Rate Blood Pressure O2 Sat by Pulse 96 96 97 Oximetry 05/27/19 05/27/19 05/27/19 04:43 04:48 04:53 Pulse Rate 75 83 85 Respiratory Rate Blood Pressure O2 Sat by Pulse 97 96 96 Oximetry 05/27/19 05/27/19 05/27/19 04:58 05:02 05:03 Pulse Rate 62 63 80 Respiratory Rate Blood Pressure O2 Sat by Pulse 94 94 95 Oximetry 05/27/19 05/27/19 05/27/19 05:08 05:13 05:18 Pulse Rate 77 82 84 Respiratory Rate Blood Pressure O2 Sat by Pulse 95 96 95 Oximetry 05/27/19 05/27/19 05/27/19 05:23 05:28 05:30 Pulse Rate 82 83 64 Respiratory Rate Blood Pressure O2 Sat by Pulse 95 95 94 Oximetry 05/27/19 05/27/19 05/27/19 05:33 05:38 05:40 Pulse Rate 78 83 96 H Respiratory Rate Blood Pressure O2 Sat by Pulse 96 97 93 Oximetry 05/27/19 05/27/19 05/27/19 05:43 05:48 05:50 Pulse Rate 62 83 62 Respiratory Rate Blood Pressure O2 Sat by Pulse 94 95 93 Oximetry 05/27/19 05/27/19 05/27/19 05:53 05:58 06:00 Pulse Rate 77 85 59 L Respiratory Rate Blood Pressure O2 Sat by Pulse 95 95 93 Oximetry 07/04/1005/27/19 05/27/19 06:03 06:07 06:08 Pulse Rate 79 63 56 L Respiratory Rate Blood Pressure O2 Sat by Pulse 95 94 96 Oximetry 05/27/19 05/27/19 05/27/19 06:13 06:18 06:23 Pulse Rate 86 66 76 Respiratory Rate Blood Pressure O2 Sat by Pulse 94 94 97 Oximetry 05/27/19 05/27/19 05/27/19 06:26 06:27 06:28 Pulse Rate 83 82 81 Respiratory Rate Blood Pressure 117/63 O2 Sat by Pulse 94 95 Oximetry 05/27/19 05/27/19 05/27/19 06:33 06:34 06:38 Pulse Rate 87 94 H 80 Respiratory Rate Blood Pressure O2 Sat by Pulse 96 94 97 Oximetry 05/27/19 05/27/19 05/27/19 06:43 06:48 06:53 Pulse Rate 83 85 86 Respiratory Rate Blood Pressure O2 Sat by Pulse 96 95 96 Oximetry 05/27/19 05/27/19 05/27/19 06:58 07:03 07:08 Pulse Rate 80 60 83 Respiratory Rate Blood Pressure O2 Sat by Pulse 97 97 95 Oximetry 05/27/19 05/27/19 05/27/19 07:13 07:18 07:23 Pulse Rate 81 77 85 Respiratory Rate Blood Pressure O2 Sat by Pulse 97 96 95 Oximetry 05/27/19 05/27/19 05/27/19 07:27 07:28 07:33 Pulse Rate 76 77 76 Respiratory Rate Blood Pressure 108/60 O2 Sat by Pulse 96 96 Oximetry 05/27/19 05/27/19 05/27/19 07:34 07:38 07:40 Pulse Rate 65 74 81 Respiratory Rate Blood Pressure O2 Sat by Pulse 94 95 94 Oximetry 05/27/19 05/27/19 05/27/19 07:43 07:46 07:48 Pulse Rate 75 80 77 Respiratory Rate Blood Pressure O2 Sat by Pulse 96 93 95 Oximetry 05/27/19 05/27/19 05/27/19 07:52 07:53 07:58 Pulse Rate 78 84 66 Respiratory Rate Blood Pressure O2 Sat by Pulse 94 95 94 Oximetry 05/27/19 05/27/19 08:01 08:03 Pulse Rate 72 54 L Respiratory Rate Blood Pressure 120/58 O2 Sat by Pulse 96 Oximetry - Labs Labs: Abnormal Labs 05/24/19 05/24/19 05/24/19 15:40 15:40 21:31 RBC 3.42 L MCV 98 H MCH 34 H MCHC 35 H RDW 12.9 L [place] % (Auto) 8.1 H Creatinine 0.6 L POC Glucose 140 H Magnesium 05/24/19 05/25/19 05/25/19 22:12 04:57 06:21 RBC MCV MCH MCHC RDW [place] % (Auto) Creatinine POC Glucose 120 H Magnesium 4.50 H 5.10 H 05/25/19 05/25/19 05/25/19 08:55 08:55 08:55 RBC MCV 99 H MCH 34 H MCHC 35 H RDW 13.1 L [place] % (Auto) Creatinine 0.6 L POC Glucose Magnesium 5.30 H 05/25/19 05/25/19 05/25/19 11:39 14:50 17:05 RBC MCV MCH MCHC RDW [place] % (Auto) Creatinine POC Glucose 112 H 113 H Magnesium 5.60 H 05/25/19 05/25/19 05/26/19 20:15 23:05 00:04 RBC MCV MCH MCHC RDW [place] % (Auto) Creatinine POC Glucose 163 H 152 H Magnesium 4.80 H 05/26/19 05/26/19 05/26/19 02:41 08:11 08:59 RBC MCV MCH MCHC RDW [place] % (Auto) Creatinine POC Glucose 118 H Magnesium 4.40 H 4.60 H 05/26/19 05/26/19 05/26/19 11:59 15:24 16:54 RBC MCV MCH MCHC RDW [place] % (Auto) Creatinine POC Glucose 124 H 109 H Magnesium 4.40 H 05/26/19 23:38 RBC MCV MCH MCHC RDW [place] % (Auto) Creatinine POC Glucose 124 H Magnesium Laboratory Results - last 24 hr 05/26/19 05/26/19 05/26/19 08:11 08:59 11:59 POC Glucose 118 H 124 H Magnesium 4.60 H 05/26/19 05/26/19 05/26/19 15:24 16:54 23:38 POC Glucose 109 H 124 H Magnesium 4.40 H
[2019-05-27] MEDS ORDERED: PITOCin/NS 30 UNIT/500ML 30 UNITS/500 ML BAG IV ONE (08:00)
[2019-05-27] MEDS ORDERED: D50W (25GM) Syringe IV PRN (09:02)
[2019-05-27] MEDS ORDERED: NON-FORMULARY (Albuterol Sulfate [Proair Respiclick] 90 MCG) IH PRN (09:03)
[2019-05-27] MEDS: GLUCOPHAGE PO SCH ×2 (09:17→21:59)
[2019-05-27] MEDS ORDERED: MARCAINE 0.25% INFILTRATI ONE ×2 (09:24→11:07)
[2019-05-27] MEDS ORDERED: NARCAN 2 MG/2 ML IV PRN (09:24)
--- NOTE | 2019-05-27 09:24 | Anesthesia Consultation ---
Anesthesia Consult and Med Hx Date of service: 05/27/19 - Airway Anesthetic Teeth Evaluation: Good ROM Head & Neck: Adequate Mental/Hyoid Distance: Adequate Mallampati Class: Class II Intubation Access Assessment: Good - Pulmonary Exam CTA: Yes - Cardiac Exam Cardiac Exam: RRR - Pre-Operative Health Status ASA Pre-Surgery Classification: ASA2 Proposed Anesthetic Plan: Epidural - Pulmonary Hx Asthma: Yes (last asthma attack 02/2019) Hx Pneumonia: Yes - Cardiovascular System Hx Hypertension: Yes (CHTN) - Central Nervous System Hx Seizures: No Hx Psychiatric Problems: No - Endocrine Hx Renal Disease: No Hx End Stage Renal Disease: No Hx Hypothyroidism: Yes (thyroidectomy) Hx Hyperthyroidism: No - Hematic Hx Anemia: No Hx Sickle Cell Disease: No - Other Systems Hx Alcohol Use: No
[2019-05-27] MEDS ORDERED: SYNTHROID PO SCH (10:00)
[2019-05-27] MEDS ORDERED: NORMODYNE PO SCH (10:00)
[2019-05-27] MEDS ORDERED: fentaNYL-BUPIV 2 MCG/ML-0.125% 200 MCG/100 ML BAG EPIDURAL SCH (10:00)
[2019-05-27 10:48] LABS: Hematocrit 32.1 % (30.3-42.9); Hemoglobin 11.4 gm/dl (10.1-14.3); Mean Corpuscular HGB Conc 36 % (30-34); Mean Corpuscular Volume 99 fl (79-97); Platelet Count 398 K/mm3 (140-440); Red Blood Count 3.24 M/mm3 (3.65-5.03); Red Cell Distribution Width 13.2 % (13.2-15.2)
--- NOTE | 2019-05-27 11:20 | Event Note ---
Date: 05/27/19 Assessment and Plan - Patient Problems (1) 35 weeks gestation of Current Visit: Yes Status: Acute (2) Pre-eclampsia Current Visit: Yes Status: Acute (3) HTN (hypertension) Current Visit: Yes Status: Acute Qualifiers: Hypertension type: essential hypertension Qualified Code(s): I10 - Essential (primary) hypertension (4) Headache Onset Date: ~05/24/19 Current Visit: Yes Status: Acute Qualifiers: Headache type: tension-type Headache chronicity pattern: acute headache (5) IUGR (intrauterine growth restriction) Current Visit: Yes Status: Acute (6) Diabetes in Current Visit: Yes Status: Acute Qualifiers: Diabetes in type: pre-existing, unspecified type Trimester: third trimester Qualified Code(s): O24.313 - Unspecified pre-existing diabetes mellitus in , third trimester (7) Hypothyroid Current Visit: Yes Status: Acute (8) Proteinuria Current Visit: Yes Status: Acute (9) Protein S deficiency Current Visit: Yes Status: Acute (10) DVT (deep venous thrombosis) Current Visit: Yes Status: Acute (11) TIA (transient ischemic attack) Current Visit: Yes Status: Acute (12) Asthma Current Visit: Yes Status: Acute Plan to address problem: Patient gives a history of asthma today
--- NOTE | 2019-05-27 11:41 | Progress Note ---
Subjective Date of service: 05/27/19 Principal diagnosis: IUP @ 35+3; DM, mild pre-e, IUGR, hypothyroid Interval history: Called to room by Rn. Patient had little relief from epidural even after catheter pulled back and bolus given. Catheter pulled tip intact. Pt sitting back up for CSE, sterile drape and prep. 3cc 1/% lidocaine to L3-2, epidural needle advanced to +CHERRY, -CSF,-Blood, 27g spinal needle, +csf,-blood,-parasthesia. spinal given epidural cath advanced to 15cm skin -aspiration, -TD, sterile dressing, pt tolerated procedure. Objective - Constitutional Vitals: Vital Signs - 12hr 05/26/19 05/26/19 05/26/19 23:38 23:43 23:48 Pulse Rate 75 86 71 Respiratory Rate Blood Pressure O2 Sat by Pulse 97 97 96 Oximetry 05/26/19 05/26/19 05/27/19 23:53 23:58 00:03 Pulse Rate 76 77 73 Respiratory Rate Blood Pressure O2 Sat by Pulse 97 97 97 Oximetry 05/27/19 05/27/19 05/27/19 00:08 00:13 00:18 Pulse Rate 77 77 77 Respiratory Rate Blood Pressure O2 Sat by Pulse 97 97 97 Oximetry 05/27/19 05/27/19 05/27/19 00:23 00:28 00:33 Pulse Rate 77 89 105 H Respiratory Rate Blood Pressure 117/63 O2 Sat by Pulse 94 97 94 Oximetry 05/27/19 05/27/19 05/27/19 00:38 00:43 00:48 Pulse Rate 107 H 81 76 Respiratory Rate Blood Pressure O2 Sat by Pulse 97 100 100 Oximetry 05/27/19 05/27/19 05/27/19 00:53 00:58 01:03 Pulse Rate 80 80 107 H Respiratory Rate Blood Pressure O2 Sat by Pulse 99 99 97 Oximetry 05/27/19 05/27/19 05/27/19 01:08 01:13 01:18 Pulse Rate 96 H 96 H 88 Respiratory Rate Blood Pressure O2 Sat by Pulse 100 100 100 Oximetry 05/27/19 05/27/19 05/27/19 01:23 01:28 01:33 Pulse Rate 83 82 87 Respiratory Rate Blood Pressure O2 Sat by Pulse 100 100 97 Oximetry 05/27/19 05/27/19 05/27/19 01:38 01:43 01:48 Pulse Rate 85 82 69 Respiratory Rate Blood Pressure O2 Sat by Pulse 97 98 98 Oximetry 05/27/19 05/27/19 05/27/19 01:53 01:58 02:03 Pulse Rate 88 85 87 Respiratory Rate Blood Pressure O2 Sat by Pulse 97 97 97 Oximetry 05/27/19 05/27/19 05/27/19 02:08 02:13 02:18 Pulse Rate 66 86 80 Respiratory Rate Blood Pressure O2 Sat by Pulse 97 97 97 Oximetry 05/27/19 05/27/19 05/27/19 02:23 02:28 02:33 Pulse Rate 87 71 89 Respiratory Rate Blood Pressure O2 Sat by Pulse 97 97 97 Oximetry 05/27/19 05/27/19 05/27/19 02:38 02:43 02:48 Pulse Rate 91 H 84 80 Respiratory Rate Blood Pressure O2 Sat by Pulse 97 96 97 Oximetry 05/27/19 05/27/19 05/27/19 02:53 02:58 03:03 Pulse Rate 82 84 85 Respiratory Rate Blood Pressure O2 Sat by Pulse 98 97 97 Oximetry 05/27/19 05/27/19 05/27/19 03:08 03:13 03:18 Pulse Rate 85 78 83 Respiratory Rate Blood Pressure O2 Sat by Pulse 98 97 96 Oximetry 05/27/19 05/27/19 05/27/19 03:23 03:28 03:32 Pulse Rate 86 82 78 Respiratory 18 Rate Blood Pressure O2 Sat by Pulse 97 97 94 Oximetry 05/27/19 05/27/19 05/27/19 03:33 03:38 03:43 Pulse Rate 79 72 86 Respiratory Rate Blood Pressure O2 Sat by Pulse 94 96 97 Oximetry 05/27/19 05/27/19 05/27/19 03:48 03:53 03:58 Pulse Rate 94 H 99 H 81 Respiratory Rate Blood Pressure O2 Sat by Pulse 96 97 95 Oximetry 05/27/19 05/27/19 05/27/19 04:03 04:08 04:13 Pulse Rate 95 H 87 79 Respiratory Rate Blood Pressure O2 Sat by Pulse 96 97 97 Oximetry 05/27/19 05/27/19 05/27/19 04:18 04:23 04:28 Pulse Rate 76 79 77 Respiratory Rate Blood Pressure O2 Sat by Pulse 97 97 96 Oximetry 05/27/19 05/27/19 05/27/19 04:33 04:38 04:43 Pulse Rate 71 81 75 Respiratory Rate Blood Pressure O2 Sat by Pulse 96 97 97 Oximetry 05/27/19 05/27/19 05/27/19 04:48 04:53 04:58 Pulse Rate 83 85 62 Respiratory Rate Blood Pressure O2 Sat by Pulse 96 96 94 Oximetry 05/27/19 05/27/19 05/27/19 05:02 05:03 05:08 Pulse Rate 63 80 77 Respiratory Rate Blood Pressure O2 Sat by Pulse 94 95 95 Oximetry 05/27/19 05/27/19 05/27/19 05:13 05:18 05:23 Pulse Rate 82 84 82 Respiratory Rate Blood Pressure O2 Sat by Pulse 96 95 95 Oximetry 05/27/19 05/27/19 05/27/19 05:28 05:30 05:33 Pulse Rate 83 64 78 Respiratory Rate Blood Pressure O2 Sat by Pulse 95 94 96 Oximetry 05/27/19 05/27/19 05/27/19 05:38 05:40 05:43 Pulse Rate 83 96 H 62 Respiratory Rate Blood Pressure O2 Sat by Pulse 97 93 94 Oximetry 05/27/19 05/27/19 05/27/19 05:48 05:50 05:53 Pulse Rate 83 62 77 Respiratory Rate Blood Pressure O2 Sat by Pulse 95 93 95 Oximetry 05/27/19 05/27/19 05/27/19 05:58 06:00 06:03 Pulse Rate 85 59 L 79 Respiratory Rate Blood Pressure O2 Sat by Pulse 95 93 95 Oximetry 05/27/19 05/27/19 05/27/19 06:07 06:08 06:13 Pulse Rate 63 56 L 86 Respiratory Rate Blood Pressure O2 Sat by Pulse 94 96 94 Oximetry 05/27/19 05/27/19 05/27/19 06:18 06:23 06:26 Pulse Rate 66 76 83 Respiratory Rate Blood Pressure O2 Sat by Pulse 94 97 94 Oximetry 05/27/19 05/27/19 05/27/19 06:27 06:28 06:33 Pulse Rate 82 81 87 Respiratory Rate Blood Pressure 117/63 O2 Sat by Pulse 95 96 Oximetry 05/27/19 05/27/19 05/27/19 06:34 06:38 06:43 Pulse Rate 94 H 80 83 Respiratory Rate Blood Pressure O2 Sat by Pulse 94 97 96 Oximetry 05/27/19 05/27/19 05/27/19 06:48 06:53 06:58 Pulse Rate 85 86 80 Respiratory Rate Blood Pressure O2 Sat by Pulse 95 96 97 Oximetry 05/27/19 05/27/19 05/27/19 07:03 07:08 07:13 Pulse Rate 60 83 81 Respiratory Rate Blood Pressure O2 Sat by Pulse 97 95 97 Oximetry 05/27/19 05/27/19 05/27/19 07:18 07:23 07:27 Pulse Rate 77 85 76 Respiratory Rate Blood Pressure 108/60 O2 Sat by Pulse 96 95 Oximetry 05/27/19 05/27/19 05/27/19 07:28 07:33 07:34 Pulse Rate 77 76 65 Respiratory Rate Blood Pressure O2 Sat by Pulse 96 96 94 Oximetry 05/27/19 05/27/19 05/27/19 07:38 07:40 07:43 Pulse Rate 74 81 75 Respiratory Rate Blood Pressure O2 Sat by Pulse 95 94 96 Oximetry 05/27/19 05/27/19 05/27/19 07:46 07:48 07:52 Pulse Rate 80 77 78 Respiratory Rate Blood Pressure O2 Sat by Pulse 93 95 94 Oximetry 05/27/19 05/27/19 05/27/19 07:53 07:58 08:01 Pulse Rate 84 66 72 Respiratory Rate Blood Pressure 120/58 O2 Sat by Pulse 95 94 Oximetry 05/27/19 05/27/19 05/27/19 08:03 08:08 08:13 Pulse Rate 54 L 78 76 Respiratory Rate Blood Pressure O2 Sat by Pulse 96 95 96 Oximetry 05/27/19 05/27/19 05/27/19 08:18 08:23 08:27 Pulse Rate 74 94 H 75 Respiratory Rate Blood Pressure 129/69 O2 Sat by Pulse 95 96 Oximetry 05/27/19 05/27/19 05/27/19 08:28 08:33 08:38 Pulse Rate 76 61 87 Respiratory Rate Blood Pressure O2 Sat by Pulse 96 94 95 Oximetry 05/27/19 05/27/19 05/27/19 08:41 08:43 08:48 Pulse Rate 64 82 75 Respiratory Rate Blood Pressure O2 Sat by Pulse 94 94 95 Oximetry 05/27/19 05/27/19 05/27/19 08:49 08:53 08:54 Pulse Rate 59 L 63 79 Respiratory Rate Blood Pressure O2 Sat by Pulse 94 94 94 Oximetry 05/27/19 05/27/19 05/27/19 08:58 09:00 09:03 Pulse Rate 79 64 80 Respiratory Rate Blood Pressure O2 Sat by Pulse 94 94 94 Oximetry 05/27/19 05/27/19 05/27/19 09:05 09:08 09:11 Pulse Rate 79 77 Respiratory 18 Rate Blood Pressure O2 Sat by Pulse 93 93 Oximetry 05/27/19 05/27/19 05/27/19 09:13 09:18 09:19 Pulse Rate 78 80 78 Respiratory Rate Blood Pressure O2 Sat by Pulse 93 92 94 Oximetry 05/27/19 05/27/19 05/27/19 09:23 09:26 09:28 Pulse Rate 77 85 95 H Respiratory Rate Blood Pressure O2 Sat by Pulse 93 92 94 Oximetry 05/27/19 05/27/19 05/27/19 09:31 09:33 09:34 Pulse Rate 83 81 80 Respiratory Rate Blood Pressure 138/74 140/70 O2 Sat by Pulse 96 Oximetry 05/27/19 05/27/19 05/27/19 09:36 09:38 09:40 Pulse Rate 87 90 73 Respiratory Rate Blood Pressure 129/65 120/58 O2 Sat by Pulse 94 Oximetry 05/27/19 05/27/19 05/27/19 09:42 09:43 09:48 Pulse Rate 76 75 76 Respiratory Rate Blood Pressure 113/57 O2 Sat by Pulse 94 95 Oximetry 05/27/19 05/27/19 05/27/19 09:49 09:53 09:54 Pulse Rate 78 78 77 Respiratory Rate Blood Pressure O2 Sat by Pulse 94 94 94 Oximetry 05/27/19 05/27/19 05/27/19 09:58 10:00 10:03 Pulse Rate 76 80 85 Respiratory Rate Blood Pressure 116/60 O2 Sat by Pulse 93 94 94 Oximetry 05/27/19 05/27/19 05/27/19 10:07 10:08 10:13 Pulse Rate 82 79 76 Respiratory Rate Blood Pressure 118/55 O2 Sat by Pulse 93 94 93 Oximetry 05/27/19 05/27/19 05/27/19 10:15 10:18 10:21 Pulse Rate 79 88 89 Respiratory Rate Blood Pressure O2 Sat by Pulse 92 94 94 Oximetry 05/27/19 05/27/19 05/27/19 10:23 10:27 10:28 Pulse Rate 83 79 58 L Respiratory Rate Blood Pressure O2 Sat by Pulse 94 94 94 Oximetry 05/27/19 05/27/19 05/27/19 10:29 10:32 10:33 Pulse Rate 80 78 77 Respiratory Rate Blood Pressure 145/67 O2 Sat by Pulse 93 93 Oximetry 05/27/19 05/27/19 05/27/19 10:38 10:39 10:43 Pulse Rate 82 56 L 77 Respiratory Rate Blood Pressure 137/67 O2 Sat by Pulse 93 94 95 Oximetry 05/27/19 05/27/19 05/27/19 10:46 10:48 10:52 Pulse Rate 75 55 L 78 Respiratory Rate Blood Pressure O2 Sat by Pulse 94 94 93 Oximetry 05/27/19 05/27/19 05/27/19 10:53 10:58 11:03 Pulse Rate 79 71 81 Respiratory Rate Blood Pressure 143/68 O2 Sat by Pulse 94 95 100 Oximetry 05/27/19 05/27/19 05/27/19 11:08 11:13 11:15 Pulse Rate 78 83 85 Respiratory Rate Blood Pressure 169/89 O2 Sat by Pulse 100 100 Oximetry 05/27/19 05/27/19 05/27/19 11:18 11:21 11:22 Pulse Rate 88 61 85 Respiratory Rate Blood Pressure 152/72 O2 Sat by Pulse 99 94 Oximetry 05/27/19 05/27/19 05/27/19 11:23 11:24 11:26 Pulse Rate 86 80 62 Respiratory Rate Blood Pressure 157/74 124/63 O2 Sat by Pulse 95 Oximetry 05/27/19 05/27/19 05/27/19 11:27 11:28 11:30 Pulse Rate 84 81 80 Respiratory Rate Blood Pressure 129/69 131/70 O2 Sat by Pulse 94 95 Oximetry 05/27/19 05/27/19 11:32 11:33 Pulse Rate 67 86 Respiratory Rate Blood Pressure 127/61 O2 Sat by Pulse 94 Oximetry - Labs CBC & Chem 7: 05/27/19 10:18 05/25/19 08:55 Labs: Abnormal lab results 05/26/19 05/26/19 05/26/19 Range/Units 08:11 11:59 15:24 WBC (4.5-11.0) K/mm3 RBC (3.65-5.03) M/mm3 MCV (79-97) fl MCH (28-32) pg MCHC (30-34) % POC Glucose 118 H 124 H (70-105) Magnesium 4.40 H (1.7-2.3) mg/dL 05/26/19 05/26/19 05/27/19 Range/Units 16:54 23:38 10:18 WBC 12.2 H (4.5-11.0) K/mm3 RBC 3.24 L (3.65-5.03) M/mm3 MCV 99 H (79-97) fl MCH 35 H (28-32) pg MCHC 36 H (30-34) % POC Glucose 109 H 124 H (70-105) Magnesium (1.7-2.3) mg/dL
[2019-05-27] MEDS: PRENATAL VITAMIN PO SCH (11:59)
[2019-05-27] MEDS: NORMODYNE PO SCH ×2 (11:59→23:00)
[2019-05-27] MEDS ORDERED: HumuLIN R SUB-Q SCH (12:00)
[2019-05-27] MEDS ORDERED: PROVENTIL IH PRN ×2 (12:00)
[2019-05-27] MEDS ORDERED: PITOCin/NS 20 UNIT/1000ML DRIP 20,000 MILLIUNITS/1,000 ML BAG IV ONE ×2 (12:55→16:06)
[2019-05-27] MEDS ORDERED: PITOCin/NS 20 UNIT/1000ML DRIP 20 UNITS/1,000 ML BAG IV SCH (13:00)
[2019-05-27] MEDS ORDERED: CYTOTEC ONE (13:07)
[2019-05-27] MEDS ORDERED: CYTOTEC PR ONE (13:13)
--- NOTE | 2019-05-27 13:36 | Procedure Note ---
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 Cord blood obtained. Placenta and membrane delivered complete and intact, 3 vessel cord. Placenta to pathology Pitocin IVFs IV not running Large amt of clots expressed from uterus Cytotec 800mcg MI placed. 7/8, EBL 500, Wgt 4-0. Lucero cath replaced Will continue MGSO4 X 24 hours PP. Baby transferred to NICU. Pt remains LDR stable [facility] - Infant A at 1 minute: 7 at 5 minutes: 8 Infant Gender: Female (wgt 4-0)
[2019-05-28 01:41] LABS: Hematocrit 32.4 % (30.3-42.9)
[2019-05-28] MEDS: MAGNESIUM SULFATE 40GM/1000ML 40 GM/1,000 ML BAG IV SCH (02:52)
[2019-05-28] MEDS: GLUCOPHAGE PO SCH ×2 (10:37→17:49)
[2019-05-28] MEDS: NORMODYNE PO SCH ×2 (10:38→22:48)
[2019-05-28] MEDS: PRENATAL VITAMIN PO SCH (10:39)
[2019-05-28] MEDS: SYNTHROID PO SCH ×2 (10:54→10:57)
--- NOTE | 2019-05-28 11:15 | Post Anesthesia Evaluation ---
- Post Anesthesia Evaluation Patient Participated: Yes Airway Patent: Yes Stable Respiratory Function: Yes Nausea/Vomiting: No Temp > 96.8F: Yes Pain Manageable: Yes Adequeate Hydration: Yes Anesthesia Complications: No Block Receding Appropriately: Yes Patient on Ventilator: No
--- NOTE | 2019-05-28 11:46 | Progress Note ---
Assessment and Plan - Patient Problems (1) Asthma Current Visit: Yes Status: Acute Plan to address problem: -stable cont current treatments (2) DVT (deep venous thrombosis) Current Visit: Yes Status: Acute Plan to address problem: -scds in place -Lovenox restarting today and will con''t for next 6 wks. pt has rx (3) HTN (hypertension) Current Visit: Yes Status: Acute Qualifiers: Hypertension type: essential hypertension Qualified Code(s): I10 - Essential (primary) hypertension Plan to address problem: -cont labetalol -bp stable at this time. no IBRAHIM or blurry vision. (4) Hypothyroid Current Visit: Yes Status: Acute Plan to address problem: cont meds stable (5) Pre-eclampsia Current Visit: Yes Status: Acute Plan to address problem: MgSO4 to be d/c this pm for a 24hr course of treatment post delivery (6) Single live Current Visit: Yes Status: Acute Plan to address problem: routine pp care pt doing well d/c home tomorrow if remains AFVSS Subjective - Subjective Date of service: 05/28/19 Principal diagnosis: PPD #1; DM, mild pre-e, IUGR, hypothyroid Interval history: Pt states she is feeling well and w/o c/o today. I d/w plan to d/c mag this pm and xfer to mother/baby floor. Pt will also restar lovenox at this time. All questions were addressed and answered. Patient reports: appetite normal, voiding normally (cath in place), pain well controlled [place]: doing well, in NICU Objective - Vital Signs Latest vital signs: Vital Signs Temp Pulse Resp BP Pulse Ox 05/28/19 11:41 86 97 05/28/19 11:36 85 97 05/28/19 11:31 82 96 05/28/19 11:26 85 97 05/28/19 11:21 85 97 05/28/19 11:16 86 97 05/28/19 11:11 88 97 05/28/19 11:06 87 96 05/28/19 11:01 89 97 05/28/19 10:56 91 H 97 05/28/19 10:51 97 H 97 05/28/19 10:46 89 97 05/28/19 10:41 88 98 05/28/19 10:38 90 140/79 05/28/19 10:36 90 98 05/28/19 10:31 88 97 05/28/19 10:26 87 97 05/28/19 10:21 88 140/79 97 05/28/19 10:19 82 L 05/28/19 10:15 64 70 L 05/28/19 10:14 81 0 L 05/28/19 10:09 86 91 05/28/19 10:08 127 H 91 05/28/19 10:04 86 98 05/28/19 09:59 85 97 05/28/19 09:54 80 98 05/28/19 09:49 86 97 05/28/19 09:44 92 H 97 05/28/19 09:39 95 H 98 05/28/19 09:34 90 96 05/28/19 09:29 88 98 05/28/19 09:24 89 98 05/28/19 09:19 86 97 05/28/19 09:14 85 99 05/28/19 09:09 81 98 05/28/19 09:04 88 98 05/28/19 08:59 82 97 05/28/19 08:54 92 H 97 05/28/19 08:49 85 137/79 97 05/28/19 08:44 98 H 95 05/28/19 08:39 85 98 05/28/19 08:34 81 98 05/28/19 08:29 85 97 05/28/19 08:24 85 97 05/28/19 08:19 89 97 05/28/19 08:14 88 97 05/28/19 08:13 80 87 05/28/19 08:03 95 H 99 05/28/19 07:58 94 H 98 05/28/19 07:53 81 98 05/28/19 07:48 84 97 05/28/19 07:43 84 97 05/28/19 07:38 88 97 05/28/19 07:33 90 97 05/28/19 07:28 85 96 05/28/19 07:23 87 97 05/28/19 07:18 86 96 05/28/19 07:13 88 96 05/28/19 07:09 85 137/70 05/28/19 07:08 89 96 05/28/19 07:03 90 96 05/28/19 06:58 88 97 05/28/19 06:53 91 H 96 05/28/19 06:48 90 94 05/28/19 06:43 91 H 97 05/28/19 06:38 88 96 05/28/19 06:36 98.1 F 20 05/28/19 06:33 89 97 05/28/19 06:28 88 96 05/28/19 06:23 85 131/67 96 05/28/19 06:19 103 H 94 05/28/19 06:18 94 H 96 05/28/19 06:13 72 96 05/28/19 06:08 84 96 05/28/19 06:06 89 139/74 05/28/19 06:03 91 H 97 05/28/19 05:58 91 H 97 05/28/19 05:53 91 H 96 05/28/19 05:48 87 96 05/28/19 05:43 92 H 97 05/28/19 05:39 89 129/69 05/28/19 05:38 87 96 05/28/19 05:33 88 96 05/28/19 05:28 89 96 05/28/19 05:23 87 97 05/28/19 05:18 91 H 96 05/28/19 05:13 90 96 05/28/19 05:08 89 94 05/28/19 05:07 88 92 05/28/19 05:03 93 H 96 05/28/19 05:01 85 90 05/28/19 04:58 92 H 96 05/28/19 04:55 95 H 92 05/28/19 04:53 91 H 95 05/28/19 04:49 96 H 94 05/28/19 04:48 90 96 05/28/19 04:43 90 96 05/28/19 04:38 97 H 96 05/28/19 04:33 95 H 95 05/28/19 04:28 89 96 05/28/19 04:23 91 H 96 05/28/19 04:18 89 96 05/28/19 04:13 88 96 05/28/19 04:09 87 122/63 05/28/19 04:08 93 H 95 05/28/19 04:05 90 121/66 05/28/19 04:03 92 H 97 05/28/19 03:58 91 H 96 05/28/19 03:53 89 96 05/28/19 03:48 91 H 95 05/28/19 03:43 88 96 05/28/19 03:38 92 H 95 05/28/19 03:33 92 H 95 05/28/19 03:28 89 96 05/28/19 03:23 95 H 94 05/28/19 03:18 92 H 95 05/28/19 03:16 91 H 93 05/28/19 03:13 87 96 05/28/19 03:10 98.4 F 90 20 92 05/28/19 03:08 93 H 96 05/28/19 03:03 90 126/66 96 05/28/19 02:58 89 96 05/28/19 02:55 90 136/75 05/28/19 02:53 92 H 96 05/28/19 02:48 95 H 95 05/28/19 02:43 90 96 05/28/19 02:39 90 135/74 05/28/19 02:38 87 97 05/28/19 02:33 90 96 05/28/19 02:28 96 H 95 05/28/19 02:23 93 H 97 05/28/19 02:18 94 H 97 05/28/19 02:13 94 H 96 05/28/19 02:08 91 H 96 05/28/19 02:03 89 96 05/28/19 01:59 86 94 05/28/19 01:58 90 95 05/28/19 01:53 87 94 05/28/19 01:48 92 H 95 05/28/19 01:46 92 H 94 05/28/19 01:43 91 H 94 05/28/19 01:41 86 93 05/28/19 01:38 92 H 96 05/28/19 01:33 81 94 05/28/19 01:31 98 H 94 05/28/19 01:28 97 H 97 05/28/19 01:23 93 H 95 05/28/19 01:22 95 H 94 05/28/19 01:18 90 96 05/28/19 01:13 95 H 96 05/28/19 01:09 96 H 137/71 05/28/19 01:08 94 H 95 05/28/19 01:03 90 95 05/28/19 01:00 97.8 F 20 05/28/19 00:58 91 H 95 05/28/19 00:53 94 H 96 05/28/19 00:48 95 H 94 05/28/19 00:43 95 H 95 05/28/19 00:39 96 H 94 05/28/19 00:38 94 H 94 05/28/19 00:33 97 H 96 05/28/19 00:30 96 H 94 05/28/19 00:28 93 H 95 05/28/19 00:23 94 H 96 05/28/19 00:18 92 H 96 05/28/19 00:13 94 H 96 05/28/19 00:08 83 94 05/28/19 00:04 93 H 94 05/28/19 00:03 96 H 96 05/27/19 23:58 96 H 92 05/27/19 23:53 104 H 94 05/27/19 23:51 100 H 93 05/27/19 23:48 93 H 97 05/27/19 23:43 92 H 96 05/27/19 23:39 99 H 125/65 05/27/19 23:38 97 H 96 05/27/19 23:35 96 H 124/65 05/27/19 23:33 95 H 96 05/27/19 23:28 94 H 96 05/27/19 23:23 94 H 96 05/27/19 23:18 88 96 05/27/19 23:13 93 H 96 05/27/19 23:08 95 H 96 05/27/19 23:03 93 H 96 05/27/19 23:00 98 F 91 H 20 134/65 05/27/19 22:58 95 H 96 05/27/19 22:53 97 H 96 05/27/19 22:48 97 H 96 05/27/19 22:43 95 H 96 05/27/19 22:38 100 H 97 05/27/19 22:33 100 H 98 05/27/19 22:28 99 H 97 05/27/19 22:23 99 H 97 05/27/19 22:18 99 H 97 05/27/19 22:13 91 H 97 05/27/19 22:09 97 H 134/65 05/27/19 22:08 99 H 98 05/27/19 22:03 100 H 98 05/27/19 22:00 98.7 F 18 05/27/19 21:58 102 H 97 05/27/19 21:53 99 H 98 05/27/19 21:48 82 97 05/27/19 21:43 102 H 98 05/27/19 21:38 109 H 97 05/27/19 21:33 103 H 97 05/27/19 21:28 103 H 97 05/27/19 21:23 103 H 97 05/27/19 21:18 105 H 97 05/27/19 21:13 102 H 97 05/27/19 21:08 102 H 97 05/27/19 21:03 105 H 96 05/27/19 21:00 98 F 18 05/27/19 20:58 110 H 95 05/27/19 20:57 113 H 93 05/27/19 20:53 104 H 96 05/27/19 20:48 103 H 97 05/27/19 20:43 92 H 97 05/27/19 20:39 97 H 127/64 05/27/19 20:38 103 H 96 05/27/19 20:33 103 H 97 05/27/19 20:28 101 H 97 05/27/19 20:23 99 H 97 05/27/19 20:18 104 H 96 05/27/19 20:13 99 H 97 05/27/19 20:08 99 H 128/66 97 05/27/19 20:03 105 H 96 05/27/19 20:00 99.0 F 05/27/19 19:58 98 H 97 05/27/19 19:53 98 H 96 05/27/19 19:48 99 H 97 05/27/19 19:43 94 H 97 05/27/19 19:38 97 H 96 05/27/19 19:33 100 H 97 05/27/19 19:28 101 H 97 05/27/19 19:23 99 H 97 05/27/19 19:18 99 H 97 05/27/19 19:13 99 H 97 05/27/19 19:09 100 H 109/58 05/27/19 19:08 96 H 96 05/27/19 19:03 104 H 94 05/27/19 18:58 100 H 97 05/27/19 18:53 100 H 97 05/27/19 18:48 103 H 97 05/27/19 18:43 100 H 96 05/27/19 18:38 98 H 96 05 18:33 100 H 96 05/27/19 18:28 100 H 96 05 18:23 100 H 96 05 18:19 104 H 94 05 18:18 99 H 97 05 18:13 95 H 97 05 18:08 99 H 97 05 18:03 90 98 05 17:58 95 H 98 05 17:53 90 97 05 17:48 97 H 98 05/27/19 17:43 98 H 97 05/27/19 17:39 96 H 120/63 05/27/19 17:38 103 H 98 05/27/19 17:33 100 H 98 05/27/19 17:28 96 H 97 05/27/19 17:23 95 H 98 05/27/19 17:18 90 98 05/27/19 17:13 94 H 98 05/27/19 17:08 90 97 05/27/19 17:03 95 H 97 05/27/19 16:58 86 97 05/27/19 16:53 91 H 97 05/27/19 16:48 86 97 05/27/19 16:43 97 H 97 05/27/19 16:38 94 H 98 05/27/19 16:33 101 H 96 05/27/19 16:28 95 H 96 05/27/19 16:23 97 H 96 05/27/19 16:18 96 H 96 05/27/19 16:13 94 H 97 05/27/19 16:09 98 H 101/53 05/27/19 16:08 100 H 97 05/27/19 16:03 96 H 97 05/27/19 15:58 99 H 97 0519 15:53 94 H 96 05 15:48 89 96 0519 15:43 94 H 96 05/27/19 15:38 95 H 97 05/27/19 15:33 96 H 95 19 15:28 96 H 96 0519 15:23 92 H 96 05/19 15:18 99 H 98 05 15:13 95 H 96 05/27/19 15:08 93 H 96 05/27/19 15:03 95 H 97 05/27/19 14:58 90 96 05/27/19 14:53 93 H 97 05/27/19 14:48 91 H 97 05/27/19 14:43 91 H 98 05/27/19 14:38 100 H 98 05/27/19 14:33 93 H 98 05/27/19 14:28 97 H 98 05/27/19 14:23 96 H 98 05/27/19 14:18 99 H 96 05/27/19 14:13 100 H 97 05/27/19 14:08 100 H 96 05/27/19 14:03 107 H 96 05/27/19 14:01 105 H 94 05/27/19 13:58 105 H 94 05/27/19 13:53 105 H 96 05/27/19 13:48 100 H 144/90 96 05/27/19 13:46 108 H 170/123 05/27/19 13:43 100 H 96 05/27/19 13:42 111 H 134/88 05/27/19 13:38 103 H 96 05/27/19 13:37 101 H 114/58 05/27/19 13:34 117 H 94 05/27/19 13:33 114 H 95 05/27/19 13:32 116 H 113/73 05/27/19 13:28 107 H 61 L 05/27/19 13:23 108 H 96 05/27/19 13:22 91 H 69 L 05/27/19 13:19 101 H 120/76 05/27/19 13:18 109 H 97 05/27/19 13:14 100 H 171/95 83 L 05/27/19 13:13 106 H 96 05/27/19 13:12 105 H 160/86 05/27/19 13:10 134/72 05/27/19 13:08 90 133/71 96 05/27/19 13:06 102 H 126/81 89 05/27/19 13:04 100 H 145/75 05/27/19 13:03 91 H 97 05/27/19 13:02 92 H 139/77 05/27/19 13:00 91 H 142/78 05/27/19 12:58 88 141/81 97 05/27/19 12:56 94 H 138/78 07/05/19 12:54 81 139/76 07/05/19 12:53 82 95 07/05/19 12:52 86 140/79 07/05/19 12:51 98 H 94 07/05/19 12:50 90 133/82 07/05/19 12:48 84 133/76 96 07/05/19 12:46 88 136/68 07/05/19 12:44 69 118/63 07/05/19 12:43 80 97 07/05/19 12:42 76 119/64 07/05/19 12:40 71 118/62 07/05/19 12:38 75 116/63 97 07/05/19 12:36 71 121/60 07/05/19 12:34 74 122/61 07/05/19 12:33 74 96 07/05/19 12:32 73 121/61 07/05/19 12:30 74 116/65 07/05/19 12:28 72 115/60 96 07/05/19 12:26 73 123/62 07/05/19 12:24 68 118/58 07/05/19 12:23 75 97 07/05/19 12:22 70 119/60 07/05/19 12:20 82 116/64 07/05/19 12:18 74 118/67 96 07/05/19 12:16 75 113/65 07/05/19 12:14 73 118/64 07/05/19 12:13 74 96 07/05/19 12:12 74 116/60 07/05/19 12:10 71 115/63 07/05/19 12:08 72 115/64 96 07/05/19 12:06 78 115/59 07/05/19 12:04 73 114/59 07/05/19 12:03 73 97 07/05/19 12:02 78 114/58 91 07/05/19 12:00 79 118/64 07/05/19 11:59 75 118/64 07/05/19 11:58 77 95 07/05/19 11:56 71 115/55 07/05/19 11:54 76 116/58 07/05/19 11:53 71 96 07/05/19 11:52 78 119/65 07/05/19 11:50 76 117/63 07/05/19 11:49 80 94 07/05/19 11:48 80 118/64 94 05/27/19 11:46 80 119/60 05/27/19 11:44 82 121/60 94 05/27/19 11:43 76 94 Intake and Output 05/27/19 05/28/19 05/28/19 22:59 06:59 14:59 Intake Total 953.333 Output Total 600 1325 Balance -600 -371.667 Intake: IV 953.333 MAGNESIUM SULFATE 40GM/ 953.333 1000ML 40 gm In 1,000 ml @ 2 GM/HR 50 mls/hr IV DIRECT IRIS Rx#:[id number] Output: Urine 600 1325 Indwelling Catheter 600 1325 Other: Total, Output Amount 400 400 - Exam Breasts: Present: normal Cardiovascular: Present: Normal S1, Normal S2 Lungs: Present: Clear to auscultation, Normal air movement Abdomen: Present: normal appearance, soft, normal bowel sounds. Absent: distention, tenderness, guarding Uterus: Present: normal, firm, fundal height below umbilicus. Absent: bogginess, tenderness Extremities: Present: normal, other (SCDs in place). Absent: tenderness, edema Deep Tendon Reflex Grade: Normal +2 - Labs Labs: Abnormal lab results 05/27/19 05/27/19 05/27/19 Range/Units 13:36 19:11 19:56 POC Glucose 155 H (70-105) Magnesium 4.80 H 4.70 H (1.7-2.3) mg/dL 05/28/19 05/28/19 Range/Units 01:11 07:26 POC Glucose (70-105) Magnesium 5.20 H 5.30 H (1.7-2.3) mg/dL
[2019-05-28] MEDS ORDERED: LOVENOX SUB-Q SCH (12:00)
[2019-05-29] MEDS: SYNTHROID PO SCH ×2 (06:33)
[2019-05-29] MEDS: GLUCOPHAGE PO SCH (09:49)
[2019-05-29] MEDS: NORMODYNE PO SCH (09:50)
[2019-05-29] MEDS: PRENATAL VITAMIN PO SCH (09:50)
[2019-05-29] MEDS: TYLENOL PO PRN (09:53)
[2019-05-29 12:25] VITALS: BP 144/80
--- NOTE | 2019-05-29 12:53 | Discharge Summary ---
Providers - Providers Date of Admission: 05/24/19 14:05 Date of discharge: 05/29/19 Attending physician: JEFFERY SU 05/24/19 17:13 Consult to Physician [CONS] Routine Comment: Consulting Provider: TERESA FLAHERTY Physician Instructions: Reason For Exam: CHTN, T2DM, hypothyroid Primary care physician: JEFFERY SU Hospitalization Reason for admission: other (elevated blood pressure/headache) Delivery: Procedure: other (vaginal delivery) Procedure details: see delivery note Episiotomy: other (see delivery note) Other procedures: none complications: none Discharge diagnosis: other (see chart), delivery baby: female Hospital course: Pt was admitted for elevated blood pressures and was induced due to sever features of hypertension. She had mgso4 post for 24hrs. Pt bp has remained normal on current po meds. Will d/c to home today. She understands need for lovenox which was restarted yesterday and states she has the rx as well as continuing the bp meds and she has this rx also. All questions were addressed and answered. Condition at discharge: Good Disposition: DC-01 TO HOME OR SELFCARE - Discharge Diagnoses (1) Asthma Status: Acute (2) DVT (deep venous thrombosis) Status: Acute (3) HTN (hypertension) Status: Acute Qualifiers: Hypertension type: essential hypertension Qualified Code(s): I10 - Essential (primary) hypertension (4) Hypothyroid Status: Acute (5) Pre-eclampsia Status: Acute (6) Single live Status: Acute Plan - Discharge Medications Prescriptions: Labetalol [Labetalol 200mg TAB] 200 mg PO BID #60 tablet - Provider Discharge Summary Activity: routine, no sex for 6 weeks, no heavy lifting 4 weeks, no strenuous exercise Diet: routine Additional instructions: [] Smoking cessation referral if applicable(refer to patient education folder for contact #) [] Refer to [employer] [facility] Center Booklet Call your doctor immediately for: * Fever > 100.5 * Heavy vaginal bleeding ( >1 pad per hour) * Severe persistent headache * Shortness of breath * Reddened, hot, painful area to leg or breast * Drainage or odor from incision. * Keep incision clean and dry at all times and follow doctor's instructions regarding bathing/showering - Follow up plan Follow up: JEFFERY SU MD [Primary Care Provider] - 7 Days
== END 2019-05-29 15:00 | disposition home or self-care (01) | DRG 774 ==
LOC: LD 14:05 → OB 05-28 14:31
PROVIDERS: ADMIT Obstetrics & Gynecology; ATTEND Obstetrics & Gynecology
PROC: 10E0XZZ Delivery of Products of Conception, External Approach (ICD-10-PCS; principal; 2019-05-27)
PROC: 3E0P7VZ Introduction of Hormone into Female Reproductive, Via Natural or Artificial Opening (ICD-10-PCS; 2019-05-27)
PROC: 3E0R3BZ Introduction of Anesthetic Agent into Spinal Canal, Percutaneous Approach (ICD-10-PCS; 2019-05-27)
PROC: 00HU33Z Insertion of Infusion Device into Spinal Canal, Percutaneous Approach (ICD-10-PCS; 2019-05-27)
DX: O11.4 Pre-existing hypertension with pre-eclampsia, complicating childbirth (principal); O99.52 Diseases of the respiratory system complicating childbirth; J45.909 Unspecified asthma, uncomplicated; O36.5930 Maternal care for other known or suspected poor fetal growth, third trimester, not applicable or unspecified; E89.0 Postprocedural hypothyroidism; O24.32 Unspecified pre-existing diabetes mellitus in childbirth; E11.9 Type 2 diabetes mellitus without complications; O99.12 Other diseases of the blood and blood-forming organs and certain disorders involving the immune mechanism complicating childbirth; E66.9 Obesity, unspecified; O99.214 Obesity complicating childbirth; O60.14X0 Preterm labor third trimester with preterm delivery third trimester, not applicable or unspecified; O76 Abnormality in fetal heart rate and rhythm complicating labor and delivery; D68.59 Other primary thrombophilia; O99.42 Diseases of the circulatory system complicating childbirth; G45.9 Transient cerebral ischemic attack, unspecified; Z82.49 Family history of ischemic heart disease and other diseases of the circulatory system; Z37.0 Single live birth; Z3A.35 35 weeks gestation of pregnancy; Z87.01 Personal history of pneumonia (recurrent); Z83.3 Family history of diabetes mellitus; Z88.0 Allergy status to penicillin; Z79.899 Other long term (current) drug therapy; Z86.718 Personal history of other venous thrombosis and embolism
CPT/HCPCS: 36415; 59200; 81001; 82565; 82962; 83615; 83735; 84450; 84460; 84550; 85014; 85018; 85025; 85027; 86850; 86900; 86901; 87116; 88307; G0378; J0702; J1650; J1815; J2405; J2590; J3010; J3475; J7120